=== PATIENT | male | born 1935 | race Caucasian/White ===

== ENCOUNTER → 2016-12-22 | Day surgery (SDC) | payer MEDICARE, BC ==
[~2016-12-22] MED LIST: Acetaminophen/HYDROcodone 325-5 MG Tab PO PRN; Midazolam 1 MG/ML 2 ML SDV IV ONE; Midazolam 1 MG/ML 2 ML SDV ONE; Nicotine 14 MG/24 Hr Patch TRDERM ONE; fentaNYL 100 MCG/2 ML SDV IV ONE; fentaNYL 100 MCG/2 ML SDV ONE
[2016-12-22 13:05] VITALS: BP 192/50
--- NOTE | 2016-12-23 07:44 | OR ---
DATE OF OPERATION: 12/22/2016 PREOPERATIVE DIAGNOSIS: INVASIVE SQUAMOUS CELL CARCINOMA, BIOPSY-PROVEN LESION, LEFT LOWER LIP. POSTOPERATIVE DIAGNOSIS: INVASIVE SQUAMOUS CELL CARCINOMA, BIOPSY-PROVEN LESION, LEFT LOWER LIP. SURGEON: Raghu Perez MD PROCEDURE: WIDE EXCISION WITH VERMILIONECTOMY, LOWER LIP. ANESTHESIA: Local with sedation. DESCRIPTION OF PROCEDURE: Dr. Arias from Dermatology in [place] has biopsied Mr. Dixon's lower lip with evidence of a squamous cell carcinoma, invasive type features. The lesion itself is fairly extensive across the central portion of the lower lip with a central ulceration involving just to the left of midline. The area in question measures approximately 1.8 cm in diameter with crusted scaliness and the biopsy sutures still in place. The remainder of the lip showed some extensive keratotic changes. The patient was taken to the operating suite, an IV sedation with constant monitoring using a fentanyl 50 mcg and Versed 1 mg anesthesia with the lip carefully anesthetized using Xylocaine 2% with epinephrine buffered solution. The mucocutaneous margin anteriorly appeared to be somewhat free of disease and at this point, the incision was made just at the Whisker's line. The posterior extent was into the mucosa with a peripheral margin of 2 mm to 3 mm. A standard vermilionectomy was performed which was brought down to the subcutaneous tissues and the portion of muscularis was also excised with the specimen. The mucosal margins were carefully undermined and the subcutaneous tissues were closed with interrupted 5-0 Vicryl followed by 5-0 Prolene suture for the mucocutaneous junction. The patient will be discharged on NicoDerm patches along with Lortab for discomfort. Ointment will be applied and the standard precautions are noted for this discharge. I will see him in the clinic tomorrow for progress and cleaning of the wound. ANDRES/CLAIRE /[id number]
== END | disposition home or self-care (01) ==
LOC: CC.SDS 10:02
DX: C00.1 Malignant neoplasm of external lower lip (principal); L56.8 Other specified acute skin changes due to ultraviolet radiation; M17.10 Unilateral primary osteoarthritis, unspecified knee; G89.29 Other chronic pain; M25.562 Pain in left knee; J44.1 Chronic obstructive pulmonary disease with (acute) exacerbation; K58.9 Irritable bowel syndrome, unspecified; Z88.8 Allergy status to other drugs, medicaments and biological substances; Z79.899 Other long term (current) drug therapy
CPT/HCPCS: 40500; 88305; A9270; J2250; J3010

== ENCOUNTER 2018-06-06 14:36 | Observation (INO) | payer MEDICARE, BC ==
[2018-06-06 15:06] LABS: CHLORIDE,CL 104 mEq/L (98-106); SODIUM,NA 140 mEq/L (136-145)
[2018-06-06] MEDS ORDERED: Sodium Chloride 0.9% 1,000 ML IV ONE (15:15)
[2018-06-06] MEDS ORDERED: Acetaminophen 325 MG Tab PO PRN (17:53)
[2018-06-06] MEDS ORDERED: Ondansetron 4 MG Tab.DIS PO PRN (17:53)
[2018-06-06] MEDS ORDERED: Meclizine 12.5 MG Tab PO PRN (18:22)
[2018-06-06] MEDS ORDERED: Formoterol/Mometasone 100-5 MCG 8.8 GM Inhaler IH PRN (18:30)
[2018-06-06] MEDS: Enoxaparin 30 MG/0.3 ML Syringe SUBCUT SCH (18:32)
[2018-06-06] MEDS: Pantoprazole 40 MG Vial IVPUSH SCH (18:32)
[2018-06-07] MEDS: Pantoprazole 40 MG Vial IVPUSH SCH ×2 (05:34→17:46)
[2018-06-07] MEDS: Sodium Chloride 0.9% 1,000 ML IV SCH ×3 (05:34→19:28)
[2018-06-07] MEDS ORDERED: Simvastatin 10 MG Tab PO SCH (08:00)
[2018-06-07] MEDS ORDERED: Tamsulosin 0.4 MG Cap.ER PO SCH (08:00)
[2018-06-07] MEDS: Lisinopril 10 MG Tab PO SCH (09:50)
[2018-06-07] MEDS: Enoxaparin 30 MG/0.3 ML Syringe SUBCUT SCH (17:48)
[2018-06-07] MEDS ORDERED: TERAZOSIN 2 MG PO SCH (20:00)
[2018-06-07] MEDS ORDERED: SIMVASTATIN 10 MG PO SCH (20:00)
--- NOTE | 2018-06-07 21:57 | PCM.PN ---
- General Info Date of Service: 06/07/18 Admission Dx/Problem (Free Text): Hypotension Lightheadedness Vomiting Functional Status: Reports: Pain Controlled, Tolerating Diet, Ambulating - Review of Systems General: Reports: Fatigue. Denies: Fever, Weakness HEENT: Reports: No Symptoms Pulmonary: Denies: Shortness of Breath Cardiovascular: Reports: Lightheadedness (has improved today). Denies: Chest Pain, Dyspnea on Exertion, Edema Gastrointestinal: Reports: Abdominal Pain (RUQ pain; states gets pain at times and when bends over, becomes lightheaded.). Denies: Nausea, Vomiting Genitourinary: Reports: No Symptoms Neurological: Denies: Headache, Syncope, Weakness - Patient Data Vitals - Most Recent: Last Vital Signs Temp 97.1 F 06/07/18 19:32 Pulse 53 L 06/07/18 19:32 Resp 20 06/07/18 19:32 BP 143/47 H 06/07/18 19:32 Pulse Ox 97 06/07/18 19:32 Weight - Most Recent: 190 lb 11.2 oz I&O - Last 24 Hours: Intake & Output 06/07/18 06/07/18 06/07/18 06:59 14:59 22:59 Intake Total 750 1989 Output Total 600 Balance 150 1989 Lab Results Last 24 Hours: Laboratory Results - last 24 hr 06/06/18 06/07/18 06/07/18 Range/Units 14:42 07:00 08:00 WBC 8.5 (5.0-10.0) 10^3/uL RBC 4.08 L (4.50-6.00) 10^6/uL Hgb 12.7 L (14.0-18.0) g/dL Hct 37.6 L (40.0-54.0) % MCV 92.2 (82.0-94.0) fL MCH 31.1 (27.0-32.0) pg MCHC 33.8 (33.0-38.0) g/dL RDW Coeff of Tasha 12.8 (11.0-15.0) % Plt Count 229 (150-400) 10^3/uL Neut % (Auto) 62.9 (35-85) % Lymph % (Auto) 25.2 (10-55) % [place] % (Auto) 9.3 (0-16) % Eos % (Auto) 1.9 (0-5) % Baso % (Auto) 0.7 (0-3) % Neut # (Auto) 5.33 (1.80-7.00) 10^3/uL Lymph # (Auto) 2.14 (1.00-4.80) 10^3/uL [place] # (Auto) 0.79 (0.00-0.80) 10^3/uL Eos # (Auto) 0.16 (0.00-0.45) 10^3/uL Baso # (Auto) 0.06 10^3/uL Sodium 141 (136-145) mEq/L Potassium 4.4 (3.5-5.0) mEq/L Chloride 107 H (98-106) mEq/L Carbon Dioxide 28 (21-32) mmol/L BUN 22 H (7-18) mg/dL Creatinine 1.4 H (0.7-1.3) mg/dL Est Cr Clr Drug Dosing 37.38 mL/min Estimated GFR (MDRD) 48 L (>=60) mL/min Glucose 125 H (75-99) mg/dL Calcium 8.6 (8.4-10.1) mg/dL C-Reactive Protein 0.3 (0.2-0.8) mg/dL Urine Color Yellow (YELLOW) Urine Appearance Clear (CLEAR) Urine pH 5.5 (4.5-8.0) Ur Specific Scalf 1.020 (1.003-1.020) Urine Protein Trace H (NEGATIVE) mg/dL Urine Glucose (UA) Negative (NEGATIVE) mg/dL Urine Ketones Negative (NEGATIVE) mg/dL Urine Occult Blood Negative (NEGATIVE) Urine Nitrite Negative (NEGATIVE) Urine Bilirubin Negative (NEGATIVE) Urine Urobilinogen 0.2 (0.2-1.0) EU/dL Ur Leukocyte Esterase Negative (NEGATIVE) Urine RBC 0-5 (0-5) /HPF Urine WBC Not seen (0-5) /HPF Calcium Oxalate Crystal Occasional H (NOT SEEN) /HPF Med Orders - Current: Current Medications Acetaminophen (Tylenol) 650 mg PO Q4H PRN PRN Reason: Pain (Mild 1-3)/fever Enoxaparin Sodium (Lovenox) 30 mg SUBCUT Q24H [facility] Last Admin: 06/07/18 17:48 Dose: 30 mg Sodium Chloride (Normal Saline) 1,000 mls @ 100 mls/hr IV ASDIRECTED [facility] Last Admin: 06/07/18 19:28 Dose: 100 mls/hr Lisinopril (Prinivil) 10 mg PO DAILY [facility] Last Admin: 06/07/18 09:50 Dose: 10 mg Meclizine HCl (Antivert) 25 mg PO TID PRN PRN Reason: DIZZINESS Mometasone Furoate/Formoterol Fumar (Dulera 100-5 Mcg) 2 puff IH BID PRN PRN Reason: Shortness of Breath Ptom Terazosin 2 (Mg Cap) 2 mg PO BEDTIME [facility] Last Admin: 06/07/18 19:30 Dose: 2 mg Ondansetron HCl (Zofran Odt) 4 mg PO Q6H PRN PRN Reason: nausea, able to take PO Pantoprazole Sodium (Protonix Iv) 40 mg IVPUSH Q12H [facility] Last Admin: 06/07/18 17:46 Dose: 40 mg Simvastatin (Zocor) 10 mg PO BEDTIME [facility] Last Admin: 06/07/18 19:31 Dose: 10 mg Discontinued Medications Sodium Chloride (Normal Saline) 1,000 mls @ 250 mls/hr IV ONETIME ONE Stop: 06/06/18 19:14 Last Admin: 06/06/18 15:15 Dose: 250 mls/hr Simvastatin (Zocor) 10 mg PO DAILY [facility] Last Admin: 06/07/18 09:46 Dose: Not Given Tamsulosin HCl (Flomax) 0.4 mg PO DAILY [facility] Last Admin: 06/07/18 09:45 Dose: Not Given - Exam General: Alert, Oriented HEENT: Mucous Membr. Moist/[place] Neck: Supple Lungs: Clear to Auscultation, Normal Respiratory Effort Cardiovascular: Regular Rate, Regular Rhythm GI/Abdominal Exam: Normal Bowel Sounds, Soft, Non-Tender Extremities: Normal Inspection, No Pedal Edema Skin: Warm, Dry Neurological: No New Focal Deficit - Problem List & Annotations (1) Hypotension SNOMED Code(s): 38760817 Code(s): I95.9 - HYPOTENSION, UNSPECIFIED Status: Acute Priority: High Current Visit: Yes (2) Lightheadedness SNOMED Code(s): 814343834 Code(s): R42 - DIZZINESS AND GIDDINESS Status: Acute Priority: High Current Visit: Yes - Problem List Review Problem List Initiated/Reviewed/Updated: Yes - My Orders Last 24 Hours: My Active Orders 06/07/18 09:01 Abdomen Ltd [US] Routine Carotid Comp [US] Routine 06/07/18 09:02 Echo Comp wo Cont [US] Routine 06/07/18 09:15 Lisinopril [Prinivil] 10 mg PO DAILY - Assessment Assessment:: Hypotension Lightheadedness Vomiting - Plan Plan:: Patient admits to feeling better today. States able to get up and ambulate to bathroom without feeling lightheaded. No further nausea or vomiting this. He does report that he has issues at times where he gets RUQ pain, can bend over and then "passes out". Had mild chest pain and upper quadrant pain yesterday but no pain today. He does have a bottle of several different pills in his Lisinopril bottle. States he does only use that when away from home but question if had taken too many meds as were several lisinopril in bottle but mixed with other meds. Lisinopril, Hytrin held since admission and blood pressure 140s/60s this am. Telemetry does show rate that drops to 40s at times today but asymptomatic with it. Labs improved today, Creatinine down to 1.4, electrolytes stable. Will restart Lisinopril at 10 mg today. Continue to hold Hytrin and HCTZ. Obtain RUQ ultrasound, echocardiogram and carotid ultrasound. Discharge inappropriate today due to need for following blood pressure, awaiting results.
[2018-06-08] MEDS: Pantoprazole 40 MG Vial IVPUSH SCH (05:45)
[2018-06-08 07:50] VITALS: BP 148/65
[2018-06-08] MEDS: Lisinopril 10 MG Tab PO SCH (07:59)
--- NOTE | 2018-06-12 19:42 | PCM.DCSUM1 ---
Discharge Summary - Hospital Course Free Text/Narrative:: Patient had presented to clinic due to feeling dizzy, nauseated and weak. Did have emesis in clinic. Was noted to have hypotension in clinic. Per patient, has been taking his meds correctly. Reports has had issues with variable blood pressures, both high and low. Labs done, creatinine 1.9. Admitted to observation, held antihypertensive meds and IV fluids given. Diagnosis: Stroke: No Modified [place] Scale: No Symptoms at All Modified [place] Scale Score: 0 - Discharge Data Discharge Date: 06/08/18 Discharge Disposition: Home, Self-Care 01 Condition: Good - Discharge Diagnosis/Problem(s) (1) Hypotension SNOMED Code(s): 04494301 ICD Code: I95.9 - HYPOTENSION, UNSPECIFIED Status: Acute Priority: High (2) Lightheadedness SNOMED Code(s): 031776915 ICD Code: R42 - DIZZINESS AND GIDDINESS Status: Acute Priority: High - Patient Summary/Data Complications: none Hospital Course: Patient has done well. No further dizziness. Does have history of syncopal episodes per patient that happen at times if he is over exerting himself or gets up too quickly. Did obtain carotid ultrasound and echocardiogram as a result. Also reports upper quadrant abdominal pain, ultrasound done which was negative for concerns. Has had previous cholecystectomy, no concerns with residual stones. Creatinine has improved to 1.4 with IV fluids. Blood pressure on day 1 was stable, started Lisinopril. Continue to hold HCTZ and Hytrin at this time. Patient has scheduled appointment with cardiology from Dr. Cantu, his primary care provider. Will forward results from carotid ultrasound and echo. Patient is up and around and doing well without further symptoms. - Patient Instructions Diet: Usual Diet as Tolerated Activity: As Tolerated - Discharge Plan *PRESCRIPTION DRUG MONITORING PROGRAM REVIEWED*: No *COPY OF PRESCRIPTION DRUG MONITORING REPORT IN PATIENT AIDA: No Prescriptions/Med Rec: Lisinopril [Prinivil] 10 mg PO DAILY #30 tablet Home Medications: Home Meds Budesonide/Formoterol [Symbicort 80-4.5 MCG] 2 puff INH BID PRN 10/26/15 [ History] Simvastatin 10 mg PO DAILY 10/26/15 [History] Cholecalciferol (Vitamin D3) [Vitamin D] 2,000 units PO DAILY 06/06/18 [History] Flaxseed Oil [Flax Oil] 1,000 mg PO DAILY 06/06/18 [History] Meclizine [Antivert] 1 tab PO TID PRN 06/06/18 [History] Tamsulosin [Flomax] 1 tab PO DAILY 06/06/18 [History] Lisinopril [Prinivil] 10 mg PO DAILY #30 tablet 06/08/18 [Rx] Patient Handouts: Hypotension Referrals: Carol Cummings PA [ED Midlevel Provider] - (Follow up with Romina in one week) - Discharge Summary/Plan Comment DC Time >30 min.: No Discharge Summary/Plan Comment: Discharge home Lisinopril 10 mg daily. Did discuss having meds packaged and patient will consider this once blood pressure meds stabilized. Keep scheduled appointment with cardiology in [place] on June 23. - General Info Date of Service: 06/08/18 Admission Dx/Problem (Free Text: Hypotension Lightheadedness Vomiting Functional Status: Reports: Pain Controlled, Tolerating Diet, Ambulating - Review of Systems General: Reports: No Symptoms HEENT: Reports: No Symptoms Pulmonary: Reports: Shortness of Breath. Denies: Cough Cardiovascular: Denies: Chest Pain, Edema, Lightheadedness Gastrointestinal: Denies: Abdominal Pain, Nausea, Vomiting Genitourinary: Reports: No Symptoms Musculoskeletal: Reports: No Symptoms Skin: Reports: No Symptoms Neurological: Reports: No Symptoms - Patient Data Vitals - Most Recent: Last Vital Signs Temp 96.7 F 06/08/18 07:49 Pulse 53 L 06/08/18 07:49 Resp 18 06/08/18 07:49 BP 148/65 H 06/08/18 07:59 Pulse Ox 100 06/08/18 07:49 Weight - Most Recent: 190 lb 11.2 oz Med Orders - Current: Current Medications Discontinued Medications Acetaminophen (Tylenol) 650 mg PO Q4H PRN PRN Reason: Pain (Mild 1-3)/fever Enoxaparin Sodium (Lovenox) 30 mg SUBCUT Q24H [facility] Last Admin: 06/07/18 17:48 Dose: 30 mg Sodium Chloride (Normal Saline) 1,000 mls @ 250 mls/hr IV ONETIME ONE Stop: 06/06/18 19:14 Last Admin: 06/06/18 15:15 Dose: 250 mls/hr Sodium Chloride (Normal Saline) 1,000 mls @ 100 mls/hr IV ASDIRECTED [facility] Last Admin: 06/07/18 19:28 Dose: 100 mls/hr Lisinopril (Prinivil) 10 mg PO DAILY [facility] Last Admin: 06/08/18 07:59 Dose: 10 mg Meclizine HCl (Antivert) 25 mg PO TID PRN PRN Reason: DIZZINESS Mometasone Furoate/Formoterol Fumar (Dulera 100-5 Mcg) 2 puff IH BID PRN PRN Reason: Shortness of Breath Ptom Terazosin 2 (Mg Cap) 2 mg PO BEDTIME [facility] Last Admin: 06/07/18 19:30 Dose: 2 mg Ondansetron HCl (Zofran Odt) 4 mg PO Q6H PRN PRN Reason: nausea, able to take PO Pantoprazole Sodium (Protonix Iv) 40 mg IVPUSH Q12H [facility] Last Admin: 06/08/18 05:45 Dose: 40 mg Simvastatin (Zocor) 10 mg PO DAILY [facility] Last Admin: 06/07/18 09:46 Dose: Not Given Simvastatin (Zocor) 10 mg PO BEDTIME [facility] Last Admin: 06/07/18 19:31 Dose: 10 mg Tamsulosin HCl (Flomax) 0.4 mg PO DAILY [facility] Last Admin: 06/07/18 09:45 Dose: Not Given - Exam General: Reports: Alert, Oriented HEENT: Reports: Mucous Membr. Moist/[place] Neck: Reports: Supple Lungs: Reports: Clear to Auscultation, Normal Respiratory Effort Cardiovascular: Reports: Regular Rate, Regular Rhythm GI/Abdominal Exam: Normal Bowel Sounds, Soft Extremities: Normal Inspection, No Pedal Edema Skin: Reports: Warm, Dry
== END 2018-06-08 10:05 | disposition home or self-care (01) ==
LOC: CC.MS 14:36 → CC.FCMC 14:36 → CC.MS 17:01 → UNDOADMOB 17:01 → CC.MS 17:53
PROVIDERS: ADMIT Family Medicine; ATTEND Family Medicine
DX: I95.2 Hypotension due to drugs (principal); R42 Dizziness and giddiness; J44.9 Chronic obstructive pulmonary disease, unspecified; Z79.899 Other long term (current) drug therapy; Z88.1 Allergy status to other antibiotic agents
CPT/HCPCS: 36415; 76705; 80048; 80053; 81001; 82550; 83615; 84484; 85025; 86140; 93005; 93010; 93306; 93880; 96361; 96372; 96374; 96376; 99217; 99219; 99225; A9270; C9113; G0378; J1650; J7030

== ENCOUNTER 2018-10-29 12:14 | Emergency (ER) | payer MEDICARE, BC ==
--- NOTE | 2018-10-29 14:20 | EDM.PDOC ---
ED HPI GENERAL MEDICAL PROBLEM - General Chief Complaint: General Stated Complaint: right arm pain Time Seen by Provider: 10/29/18 12:30 Source of Information: Reports: Patient History Limitations: Reports: No Limitations - History of Present Illness INITIAL COMMENTS - FREE TEXT/NARRATIVE: Monica is an 83 yo male who presents to the ED with complaints of tingling in his thumb, index and middle finger of his right hand and it radiates up his arm. He states he was pushing his at the home yesterday and this is when symptoms started. Denies any injury. States he hasn't ever had any symptoms like this before. Denies any other symptoms. States he doesn't have any weakness or leg involvement. No headaches. No visual disturbances, etc... - Related Data Allergies Allergy/AdvReac Type Severity Reaction Status Date / Time clarithromycin [From Biaxin] Allergy Nausea Verified 06/06/18 15:05 Home Meds: Home Meds Budesonide/Formoterol [Symbicort 80-4.5 MCG] 2 puff INH BID PRN 10/26/15 [ History] Simvastatin 10 mg PO DAILY 10/26/15 [History] Cholecalciferol (Vitamin D3) [Vitamin D] 2,000 units PO DAILY 06/06/18 [History] Flaxseed Oil [Flax Oil] 1,000 mg PO DAILY 06/06/18 [History] Meclizine [Antivert] 1 tab PO TID PRN 06/06/18 [History] Tamsulosin [Flomax] 1 tab PO DAILY 06/06/18 [History] Lisinopril [Prinivil] 10 mg PO DAILY #30 tablet 06/08/18 [Rx] Past Medical History HEENT History: Reports: Impaired Vision Cardiovascular History: Reports: Hypertension Respiratory History: Reports: COPD Gastrointestinal History: Reports: Chronic Constipation, Colon Polyp - Infectious Disease History Infectious Disease History: Reports: Measles, Pertussis (Whooping Cough) - Past Surgical History Male Surgical History: Reports: Other (See Below) Social & Family History - Family History Family Medical History: Noncontributory ED ROS GENERAL - Review of Systems Review Of Systems: ROS reveals no pertinent complaints other than HPI. Constitutional: Reports: No Symptoms HEENT: Reports: No Symptoms Respiratory: Reports: No Symptoms Cardiovascular: Reports: No Symptoms GI/Abdominal: Reports: No Symptoms : Reports: No Symptoms Musculoskeletal: Reports: Arm Pain, Hand Pain Skin: Reports: No Symptoms Neurological: Reports: Numbness (1-3rd finger right hand), Tingling. Denies: Confusion, Dizziness, Headache, Syncope, Difficulty Walking, Weakness, Change in Speech, Gait Disturbance Psychiatric: Reports: No Symptoms ED EXAM, GENERAL - Physical Exam Exam: See Below Exam Limited By: No Limitations General Appearance: Alert, No Apparent Distress Eye Exam: Bilateral Eye: EOMI, Normal Inspection, PERRL Ears: Normal External Exam, Normal Canal, Hearing Grossly Normal, Normal TMs Nose: Normal Inspection, Normal Mucosa, No Blood Throat/Mouth: Normal Inspection, Normal Lips, Normal Teeth, Normal Gums, Normal Oropharynx, Normal Voice, No Airway Compromise Head: Atraumatic, Normocephalic Neck: Normal Inspection, Supple Respiratory/Chest: No Respiratory Distress, Lungs Clear, Normal Breath Sounds, No Accessory Muscle Use Cardiovascular: Normal Peripheral Pulses, Regular Rate, Rhythm, No Murmur Extremities: Normal Inspection, Normal Range of Motion, Normal Capillary Refill , Other (Positive Tinel sign, hand refueler strength appropriate bilateraly. Full strength in right upper arm. ROM intact. ) Neurological: Alert, Oriented, Normal Cognition, Normal Reflexes, No Motor/ Sensory Deficits Psychiatric: Normal Affect, Normal Mood Skin Exam: Warm, Dry, Intact, Normal Color, No Rash Course - Vital Signs Last Recorded V/S: Last Vital Signs Temp 97.2 F 10/29/18 14:26 Pulse 61 10/29/18 14:26 Resp 18 10/29/18 14:26 BP 168/67 H 10/29/18 14:26 Pulse Ox 97 10/29/18 14:26 Departure - Departure Time of Disposition: 14:22 Disposition: Home, Self-Care 01 Clinical Impression: Carpal tunnel syndrome of right wrist - Discharge Information Instructions: Carpal Tunnel Syndrome, [id number] Forms: ED Department Discharge Additional Instructions: Wear wrist splint continuously unless showering. Important to wear to bed. Recheck with Romina Cummings on Wednesday in clinic. If any other neurological symptoms, memory loss, difficulty with speech, weakness, etc... advise immediately returning to ED. Carpal tunnel handout given - Problem List & Annotations (1) Carpal tunnel syndrome of right wrist SNOMED Code(s): 27579839 Code(s): G56.01 - CARPAL TUNNEL SYNDROME, RIGHT UPPER LIMB Status: Acute - Assessment/Plan Plan: Neuro exam was unremarkable besides positive Tinel sign which immediately caused discomfort in 1-3rd digits and tingling. Wrist splint was applied and monitored Merle for about an hour. He noticed significant improvement and symptoms subsided. Will discharge home at this time in satisfactory condition.
[2018-10-29 14:27] VITALS: BP 168/67
== END 2018-10-29 14:30 | disposition home or self-care (01) ==
LOC: CC.ED 12:14
DX: G56.01 Carpal tunnel syndrome, right upper limb (principal); I10 Essential (primary) hypertension; J44.9 Chronic obstructive pulmonary disease, unspecified; Z79.899 Other long term (current) drug therapy; Z88.1 Allergy status to other antibiotic agents
CPT/HCPCS: 93005; 99283

== ENCOUNTER 2020-05-30 15:00 | Emergency (ER) | payer MEDICARE, BC ==
[2020-05-30 15:26] VITALS: BP 120/56; PULSE 61
[2020-05-30 15:36] LABS: CHLORIDE,CL 99 mEq/L (98-106); SODIUM,NA 137 mEq/L (136-145)
--- NOTE | 2020-05-30 16:13 | EDM.PDOC ---
ED HPI GENERAL MEDICAL PROBLEM - General Chief Complaint: General Stated Complaint: dizziness, weakness Time Seen by Provider: 05/30/20 16:00 Source of Information: Reports: Patient History Limitations: Reports: No Limitations - History of Present Illness INITIAL COMMENTS - FREE TEXT/NARRATIVE: States that he has been feeling weak and tired for 3-4 days. Has had some diarrhea. States that he has had several a day but some are just "squirts". Has not been eating well. Denies any SOB or cough. Has had nausea and when he eats much he "belches it up" He denies vomiting. Denies any abdominal pain. Has been voiding without difficulty. States that he has lack of appetite but not loss of taste or smell at this time. States that he normally doesn't drink water as he doesn't like it. States that he feels very weak and that is what he is most concerned about. He admits that because he lives alone he doesn't like to cook much. "I have been laying around for 3-4 days." Onset: Gradual Location: Reports: Generalized Associated Symptoms: Reports: Loss of Appetite, Nausea/Vomiting, Weakness. Denies: Chest Pain, Fever/Chills, Shortness of Breath - Related Data Allergies Allergy/AdvReac Type Severity Reaction Status Date / Time clarithromycin [From Biaxin] Allergy Nausea Verified 05/30/20 15:30 Home Meds: Home Meds Budesonide/Formoterol [Symbicort 80-4.5 MCG] 2 puff INH BID PRN 10/26/15 [History] Simvastatin 20 mg PO DAILY 10/26/15 [History] Cholecalciferol (Vitamin D3) [Vitamin D] 2,000 units PO DAILY 06/06/18 [History] Flaxseed Oil [Flax Oil] 1,000 mg PO DAILY 06/06/18 [History] Meclizine [Antivert] 1 tab PO TID PRN 06/06/18 [History] Tamsulosin [Flomax] 1 tab PO DAILY 06/06/18 [History] Escitalopram [Lexapro] 20 mg PO DAILY 05/30/20 [History] Lisinopril/Hydrochlorothiazide [Lisinopril-Hctz 20-25 mg Tab] 1 tab PO DAILY 05/30/20 [History] Pantoprazole [ProTONIX] 40 mg PO DAILY 05/30/20 [History] Terazosin [Hytrin] 2 mg PO DAILY 05/30/20 [History] amLODIPine [Norvasc] 5 mg PO DAILY 05/30/20 [History] lisinopriL [Prinivil] 20 mg PO DAILY 05/30/20 [History] Past Medical History HEENT History: Reports: Impaired Vision Cardiovascular History: Reports: Hypertension Respiratory History: Reports: COPD Gastrointestinal History: Reports: Chronic Constipation, Colon Polyp - Infectious Disease History Infectious Disease History: Reports: Measles, Pertussis (Whooping Cough) - Past Surgical History Male Surgical History: Reports: Other (See Below) Musculoskeletal Surgical History: Reports: Other (See Below) Social & Family History - Family History Family Medical History: No Pertinent Family History - Tobacco Use Tobacco Use Status *Q: Former Tobacco User Used Tobacco, but Quit: Yes Month/Year Tobacco Last Used: 2013 - Caffeine Use Caffeine Use: Reports: None - Recreational Drug Use Recreational Drug Use: No - Living Situation & Occupation Living situation: Reports: , Alone Occupation: Retired ED ROS GENERAL - Review of Systems Review Of Systems: See Below Constitutional: Reports: Weakness, Decreased Appetite HEENT: Reports: No Symptoms Respiratory: Denies: Shortness of Breath, Cough Cardiovascular: Reports: No Symptoms GI/Abdominal: Reports: Diarrhea, Nausea. Denies: Abdominal Pain : Reports: No Symptoms Musculoskeletal: Reports: No Symptoms Skin: Reports: No Symptoms Neurological: Reports: Weakness. Denies: Confusion, Headache ED EXAM, GENERAL - Physical Exam Exam: See Below Exam Limited By: No Limitations General Appearance: Alert, WD/WN, Mild Distress Ears: Normal External Exam, Normal Canal, Normal TMs Nose: Normal Inspection Throat/Mouth: Normal Inspection, Normal Oropharynx Head: Atraumatic, Normocephalic Neck: Normal Inspection, Supple, Non-Tender, Full Range of Motion Respiratory/Chest: No Respiratory Distress, Lungs Clear, Normal Breath Sounds Cardiovascular: Regular Rate, Rhythm, No Edema GI/Abdominal: Normal Bowel Sounds, Soft, Non-Tender. No: Guarding, Rigid, Rebound Back Exam: Normal Inspection Extremities: Normal Range of Motion, No Pedal Edema, Normal Capillary Refill Neurological: Alert, Oriented Skin Exam: Warm, Dry, Intact Course - Vital Signs Last Recorded V/S: Last Vital Signs Temp 97.8 F 05/30/20 15:24 Pulse 61 05/30/20 15:24 Resp 20 05/30/20 15:24 BP 120/56 L 05/30/20 15:24 Pulse Ox 95 05/30/20 15:24 - Orders/Labs/Meds Orders: Active Orders 24 hr Category Date Time Status Chest 2V [CR] Stat Exams 05/30/20 14:56 Taken Sodium Chloride 0.9% [Normal Saline] 500 ml Med 05/30/20 16:15 Active IV .BOLUS Medication Orders Sodium Chloride (Normal Saline) 500 mls @ 999 mls/hr IV .BOLUS JAKY Last Admin: 05/30/20 16:30 Dose: 999 mls/hr Documented by: WILBER Labs: Laboratory Tests 05/30/20 05/30/20 05/30/20 Range/Units 15:10 15:10 15:10 WBC 4.6 L (5.0-10.0) 10^3/uL RBC 4.62 (4.50-6.00) 10^6/uL Hgb 14.0 (14.0-18.0) g/dL Hct 42.2 (40.0-54.0) % MCV 91.3 (82.0-94.0) fL MCH 30.3 (27.0-32.0) pg MCHC 33.2 (33.0-38.0) g/dL RDW Coeff of Tasha 13.5 (11.0-15.0) % Plt Count 143 L (150-400) 10^3/uL Neut % (Auto) 57.3 (35-85) % Lymph % (Auto) 24.6 (10-55) % Walker % (Auto) 17.7 H (0-16) % Eos % (Auto) 0.2 (0-5) % Baso % (Auto) 0.2 (0-3) % Neut # (Auto) 2.65 (1.80-7.00) 10^3/uL Lymph # (Auto) 1.14 (1.00-4.80) 10^3/uL Walker # (Auto) 0.82 H (0.00-0.80) 10^3/uL Eos # (Auto) 0.01 (0.00-0.45) 10^3/uL Baso # (Auto) 0.01 10^3/uL PT 10.1 (9.7-12.3) SEC INR 1.00 (0.92-1.18) D-Dimer, Quantitative 1.78 H (0.00-0.50) Sodium 137 (136-145) mEq/L Potassium 3.9 (3.5-5.0) mEq/L Chloride 99 (98-106) mEq/L Carbon Dioxide 27 (21-32) mmol/L BUN 28 H D (7-18) mg/dL Creatinine 2.0 H D (0.7-1.3) mg/dL Est Cr Clr Drug Dosing 25.25 mL/min Estimated GFR (MDRD) 32 L (>=60) mL/min Glucose 116 H (75-99) mg/dL Lactic Acid (0.4-2.0) mmol/L Calcium 8.7 (8.4-10.1) mg/dL Total Bilirubin 0.7 (0.0-1.0) mg/dL AST 33 (15-37) U/L ALT 17 (12-78) U/L Alkaline Phosphatase 82 (46-116) U/L Creatine Kinase 128 (35-232) U/L Troponin I < 0.017 (0.00-0.06) ng/mL NT-Pro-B Natriuret Pep 298 (0-1000) pg/mL Total Protein 8.0 (6.4-8.2) g/dL Albumin 3.2 L (3.4-5.0) g/dL Urine Color (YELLOW) Urine Appearance (CLEAR) Urine pH (4.5-8.0) Ur Specific [place] (1.003-1.020) Urine Protein (NEGATIVE) mg/dL Urine Glucose (UA) (NEGATIVE) mg/dL Urine Ketones (NEGATIVE) mg/dL Urine Occult Blood (NEGATIVE) Urine Nitrite (NEGATIVE) Urine Bilirubin (NEGATIVE) Urine Urobilinogen (0.2-1.0) EU/dL Ur Leukocyte Esterase (NEGATIVE) SARS-CoV-2 RNA (ASA) (NEGATIVE) SARS CoV-2 RNA Rapid ASA (NEGATIVE) 05/30/20 05/30/20 05/30/20 Range/Units 15:10 15:10 16:09 WBC (5.0-10.0) 10^3/uL RBC (4.50-6.00) 10^6/uL Hgb (14.0-18.0) g/dL Hct (40.0-54.0) % MCV (82.0-94.0) fL MCH (27.0-32.0) pg MCHC (33.0-38.0) g/dL RDW Coeff of Tasha (11.0-15.0) % Plt Count (150-400) 10^3/uL Neut % (Auto) (35-85) % Lymph % (Auto) (10-55) % Walker % (Auto) (0-16) % Eos % (Auto) (0-5) % Baso % (Auto) (0-3) % Neut # (Auto) (1.80-7.00) 10^3/uL Lymph # (Auto) (1.00-4.80) 10^3/uL Walker # (Auto) (0.00-0.80) 10^3/uL Eos # (Auto) (0.00-0.45) 10^3/uL Baso # (Auto) 10^3/uL PT (9.7-12.3) SEC INR (0.92-1.18) D-Dimer, Quantitative (0.00-0.50) Sodium (136-145) mEq/L Potassium (3.5-5.0) mEq/L Chloride (98-106) mEq/L Carbon Dioxide (21-32) mmol/L BUN (7-18) mg/dL Creatinine (0.7-1.3) mg/dL Est Cr Clr Drug Dosing mL/min Estimated GFR (MDRD) (>=60) mL/min Glucose (75-99) mg/dL Lactic Acid 1.2 (0.4-2.0) mmol/L Calcium (8.4-10.1) mg/dL Total Bilirubin (0.0-1.0) mg/dL AST (15-37) U/L ALT (12-78) U/L Alkaline Phosphatase (46-116) U/L Creatine Kinase (35-232) U/L Troponin I (0.00-0.06) ng/mL NT-Pro-B Natriuret Pep (0-1000) pg/mL Total Protein (6.4-8.2) g/dL Albumin (3.4-5.0) g/dL Urine Color Dark yellow (YELLOW) Urine Appearance Clear (CLEAR) Urine pH 5.5 (4.5-8.0) Ur Specific [place] >= 1.030 H (1.003-1.020) Urine Protein Negative (NEGATIVE) mg/dL Urine Glucose (UA) Negative (NEGATIVE) mg/dL Urine Ketones Negative (NEGATIVE) mg/dL Urine Occult Blood Negative (NEGATIVE) Urine Nitrite Negative (NEGATIVE) Urine Bilirubin Negative (NEGATIVE) Urine Urobilinogen 0.2 (0.2-1.0) EU/dL Ur Leukocyte Esterase Negative (NEGATIVE) SARS-CoV-2 RNA (ASA) (NEGATIVE) SARS CoV-2 RNA Rapid ASA Negative (NEGATIVE) 05/30/20 05/30/20 Range/Units 16:26 17:10 WBC (5.0-10.0) 10^3/uL RBC (4.50-6.00) 10^6/uL Hgb (14.0-18.0) g/dL Hct (40.0-54.0) % MCV (82.0-94.0) fL MCH (27.0-32.0) pg MCHC (33.0-38.0) g/dL RDW Coeff of Tasha (11.0-15.0) % Plt Count (150-400) 10^3/uL Neut % (Auto) (35-85) % Lymph % (Auto) (10-55) % Walker % (Auto) (0-16) % Eos % (Auto) (0-5) % Baso % (Auto) (0-3) % Neut # (Auto) (1.80-7.00) 10^3/uL Lymph # (Auto) (1.00-4.80) 10^3/uL Walker # (Auto) (0.00-0.80) 10^3/uL Eos # (Auto) (0.00-0.45) 10^3/uL Baso # (Auto) 10^3/uL PT (9.7-12.3) SEC INR (0.92-1.18) D-Dimer, Quantitative (0.00-0.50) Sodium (136-145) mEq/L Potassium (3.5-5.0) mEq/L Chloride (98-106) mEq/L Carbon Dioxide (21-32) mmol/L BUN (7-18) mg/dL Creatinine 1.8 H (0.7-1.3) mg/dL Est Cr Clr Drug Dosing 28.05 mL/min Estimated GFR (MDRD) 36 L (>=60) mL/min Glucose (75-99) mg/dL Lactic Acid (0.4-2.0) mmol/L Calcium (8.4-10.1) mg/dL Total Bilirubin (0.0-1.0) mg/dL AST (15-37) U/L ALT (12-78) U/L Alkaline Phosphatase (46-116) U/L Creatine Kinase (35-232) U/L Troponin I (0.00-0.06) ng/mL NT-Pro-B Natriuret Pep (0-1000) pg/mL Total Protein (6.4-8.2) g/dL Albumin (3.4-5.0) g/dL Urine Color (YELLOW) Urine Appearance (CLEAR) Urine pH (4.5-8.0) Ur Specific [place] (1.003-1.020) Urine Protein (NEGATIVE) mg/dL Urine Glucose (UA) (NEGATIVE) mg/dL Urine Ketones (NEGATIVE) mg/dL Urine Occult Blood (NEGATIVE) Urine Nitrite (NEGATIVE) Urine Bilirubin (NEGATIVE) Urine Urobilinogen (0.2-1.0) EU/dL Ur Leukocyte Esterase (NEGATIVE) SARS-CoV-2 RNA (ASA) Sent to reference la (NEGATIVE) SARS CoV-2 RNA Rapid ASA (NEGATIVE) Meds: Medications Generic Name Dose Route Start Last Admin Trade Name Freq PRN Reason Stop Dose Admin Sodium Chloride 500 mls @ 999 mls/hr 05/30/20 16:15 05/30/20 16:30 Normal Saline IV 999 mls/hr .BOLUS JAKY Administration Discontinued Medications Generic Name Dose Route Start Last Admin Trade Name Freq PRN Reason Stop Dose Admin Dexamethasone 6 mg 05/30/20 16:44 05/30/20 17:36 Dexamethasone PO 05/30/20 16:45 6 mg ONETIME ONE Administration Heparin Sodium (Porcine) Confirm 05/30/20 18:16 Heparin Sodium Administered 05/30/20 18:17 Dose 5,000 units .ROUTE .STK-MED ONE Heparin Sodium/Dextrose Confirm 05/30/20 18:16 Heparin 25,000 Units In D5w 500 Ml Administered 05/30/20 18:17 Dose 500 mls @ as directed .ROUTE .STK-MED ONE Ondansetron HCl 2 packet 05/30/20 17:49 05/30/20 17:54 Take Home: Ondansetron Odt 4 Mg, 2 Tab Pack PO 05/30/20 17:50 2 packet ONETIME ONE Administration - Re-Assessments/Exams Free Text/Narrative Re-Assessment/Exam: 05/30/20 1600 Discussed with pt that his rapid COVID is negative here and that we would be sending sample to the state lab as I feel that with the changes he has on his CXR he most likely has COVID. I told him until we get those results back that we would treat him as positive. He voices understanding of this. 05/30/20 1700 Discussed lab results and CXR with the pt and that because he does not require oxygen that he does not qualify or is it appropriate at this time for admission. He is still able to care for himself even if he is weak. He needs to push fluids as much as possible. Take the dexamethasone daily. use zofran for nausea so that he can keep fluids down. He was told that it didn't matter what he drank as long as he was drinking. He needs to be up and about as much as possible to maintain strength. If he becomes SOB then he needs to be reevaluated at that time and informed him that he could come to the ER or respiratory clinic if needed. Departure - Departure Time of Disposition: 17:46 Disposition: Home, Self-Care 01 Condition: Fair Clinical Impression: COVID-19, Diarrhea due to COVID-19 - Discharge Information *PRESCRIPTION DRUG MONITORING PROGRAM REVIEWED*: Not Applicable *COPY OF PRESCRIPTION DRUG MONITORING REPORT IN PATIENT AIDA: Not Applicable Instructions: COVID-19 Frequently Asked Questions, COVID-19: How to Protect Yourself and Others - CDC Referrals: PCP,Unobtain [Primary Care Provider] - Forms: ED Department Discharge Additional Instructions: push fluids as much as possible- doesn't matter what you drink you need to drink Jo Ann thee may help with the nausea dexamethasone 6 mg daily for the next 10 days. This was sent to the pharmacy and needs to be picked up zofran 4 mg ODT to take every 6 hours as needed for nausea Sepsis Event Note (ED) - Evaluation Sepsis Screening Result: No Definite Risk - Focused Exam Vital Signs: Vital Signs Temp Pulse Resp BP Pulse Ox 05/30/20 15:24 97.8 F 61 20 120/56 L 95 05/30/20 15:01 98.5 F 67 22 H 125/64 97 - Problem List & Annotations (1) COVID-19 SNOMED Code(s): 949445930 Code(s): U07.1 - COVID-19 Status: Acute Priority: High Current Visit: Yes (2) Diarrhea due to COVID-19 SNOMED Code(s): 158449534 Code(s): U07.1 - COVID-19; A08.39 - OTHER VIRAL ENTERITIS Status: Acute Priority: High Current Visit: Yes - Problem List Review Problem List Initiated/Reviewed/Updated: Yes - My Orders Last 24 Hours: My Active Orders 05/30/20 14:56 Chest 2V [CR] Stat 05/30/20 16:15 Sodium Chloride 0.9% [Normal Saline] 500 ml IV .BOLUS - Assessment/Plan Last 24 Hours: My Active Orders 05/30/20 14:56 Chest 2V [CR] Stat 05/30/20 16:15 Sodium Chloride 0.9% [Normal Saline] 500 ml IV .BOLUS
[2020-05-30] MEDS ORDERED: Sodium Chloride 0.9% 500 ML IV SCH (16:15)
[2020-05-30] MEDS ORDERED: Dexamethasone 4 MG Tab PO ONE (16:44)
[2020-05-30] MEDS ORDERED: Ondansetron 4 MG Tab.DIS ONE (17:30)
[2020-05-30] MEDS ORDERED: Take Home: Ondansetron 4 MG Tab.DIS, 2 Tab Pack PO ONE (17:49)
[2020-05-30] MEDS ORDERED: Heparin Sodium 5,000 Units/ML Vial ONE (18:16)
[2020-05-30] MEDS ORDERED: Heparin Sodium/D5W 500 ML ONE (18:16)
== END 2020-05-30 18:20 | disposition home or self-care (01) ==
LOC: CC.ED 15:00
DX: U07.1 COVID-19 (principal); J44.9 Chronic obstructive pulmonary disease, unspecified; I10 Essential (primary) hypertension; Z87.891 Personal history of nicotine dependence; Z79.899 Other long term (current) drug therapy; Z88.1 Allergy status to other antibiotic agents
CPT/HCPCS: 36415; 71046; 80053; 81003; 82550; 82565; 83605; 83880; 84484; 85025; 85379; 85610; 93005; 93010; 99284; 99285-25; A9270-GY; J7040; J8540; U0002

== ENCOUNTER 2020-12-14 13:24 | Emergency (ER) | payer MEDICARE, BC ==
--- NOTE | 2020-12-14 13:59 | EDM.PDOC ---
ED HPI GENERAL MEDICAL PROBLEM - General Chief Complaint: General Stated Complaint: R Arm Skin Tear Time Seen by Provider: 12/14/20 13:54 Source of Information: Reports: Patient History Limitations: Reports: No Limitations - History of Present Illness INITIAL COMMENTS - FREE TEXT/NARRATIVE: This patient is an 85 year old male that presents to the ER. Patient reports that he fell last night. Patient reports it was about 2am in the morning when he went to get water. He reports that he does not recall why he fell. He reports he remembers being able to get up right after he fell. The patient reports that he has been falling a lot since getting his 2nd covid vaccine, which he reports was 2 1/2 months ago. The patient reported to the RN that he has been worked up for his falls, been to [place] and [place] for it. However, the more I talk to the patient about his falls. He reports he was sent to [place] over a year ago. He reports his visit to [place] was to see Felicia, but he reports he does not know what speciality she is. The patient reports to me that he has not had any testing done to find out why he is falling. He reports no testing was done in [place] or [place]. The patient reports that he thinks he is falling due to the room spinning, when he stands. Patient repots that he has had this the last 2 1/2 months. The patient keeps referring to the cause being his 2nd covid vaccine. However, after further chart reviewing, it appears the patient has been seen for Vertigo, same as complaint previously. The patient reports that he currently does not have room spinning sensation. He denies chest pain, shortness of breath, n, v, d, f, cough. The patient denies headache. Reports hitting the back of his head with his fall this morning. The patient is alert and oriented. Onset: Today Onset Date: 12/14/20 Onset Time: 02:00 Duration: Other ("been falling for 2 1/2 months") Location: Reports: Upper Extremity, Right (elbow) Front/Back Body Image: 1 - large skin tear Severity: Moderate Improves with: Reports: None Worsens with: Reports: Movement Associated Symptoms: Denies: Confusion, Chest Pain, Cough, cough w sputum, Diaphoresis, Fever/Chills, Headaches, Loss of Appetite, Malaise, Nausea/Vomiting, Rash, Seizure, Shortness of Breath, Syncope, Weakness r arm Pain Score (Numeric/FACES): 4 - Related Data Allergies Allergy/AdvReac Type Severity Reaction Status Date / Time clarithromycin [From Biaxin] Allergy Nausea Verified 12/14/20 13:29 Home Meds: Home Meds Budesonide/Formoterol [Symbicort 80-4.5 MCG] 2 puff INH BID PRN 10/26/15 [History] Simvastatin 20 mg PO DAILY 10/26/15 [History] Cholecalciferol (Vitamin D3) [Vitamin D] 2,000 units PO DAILY 06/06/18 [History] Flaxseed Oil [Flax Oil] 1,000 mg PO DAILY 06/06/18 [History] Meclizine [Antivert] 1 tab PO TID PRN 06/06/18 [History] Tamsulosin [Flomax] 1 tab PO DAILY 06/06/18 [History] Escitalopram [Lexapro] 20 mg PO DAILY 05/30/20 [History] Lisinopril/Hydrochlorothiazide [Lisinopril-Hctz 20-25 mg Tab] 1 tab PO DAILY 05/30/20 [History] Pantoprazole [ProTONIX] 40 mg PO DAILY 05/30/20 [History] Terazosin [Hytrin] 2 mg PO DAILY 05/30/20 [History] amLODIPine [Norvasc] 5 mg PO DAILY 05/30/20 [History] lisinopriL [Prinivil] 20 mg PO DAILY 05/30/20 [History] Past Medical History HEENT History: Reports: Impaired Vision Cardiovascular History: Reports: Hypertension Respiratory History: Reports: COPD Gastrointestinal History: Reports: Chronic Constipation, Colon Polyp - Infectious Disease History Infectious Disease History: Reports: Measles, Pertussis (Whooping Cough) - Past Surgical History GI Surgical History: Reports: Appendectomy, Cholecystectomy Male Surgical History: Reports: Other (See Below) Other Male Surgeries/Procedures: bladder tumor removed - benign Musculoskeletal Surgical History: Reports: Other (See Below) Other Musculoskeletal Surgeries/Procedures:: knee surgery x 2 Social & Family History - Family History Family Medical History: No Pertinent Family History - Tobacco Use Tobacco Use Status *Q: Never Tobacco User Second Hand Smoke Exposure: No - Caffeine Use Caffeine Use: Reports: None - Recreational Drug Use Recreational Drug Use: No - Living Situation & Occupation Living situation: Reports: , Alone Occupation: Retired ED ROS GENERAL - Review of Systems Review Of Systems: See Below Constitutional: Reports: No Symptoms HEENT: Reports: Vertigo Respiratory: Reports: No Symptoms Cardiovascular: Reports: Lightheadedness. Denies: Chest Pain, Dyspnea on Exert ion, Edema, Palpitations, Syncope Endocrine: Reports: No Symptoms GI/Abdominal: Reports: No Symptoms : Reports: No Symptoms Musculoskeletal: Reports: Joint Pain (mild right elbow) Skin: Reports: Wound (large wound right elbow) Neurological: Reports: Dizziness, Other (Recurrent Falls) Psychiatric: Reports: No Symptoms Hematologic/Lymphatic: Reports: No Symptoms ED EXAM, GENERAL - Physical Exam Exam: See Below Exam Limited By: No Limitations General Appearance: Alert, WD/WN, No Apparent Distress Eye Exam: Bilateral Eye: EOMI, Normal Inspection, PERRL Ears: Normal External Exam, Normal Canal, Hearing Grossly Normal, Normal TMs Ear Exam: Bilateral Ear: Auricle Normal, Canal Normal, TM normal Nose: Normal Inspection, Normal Mucosa, No Blood Throat/Mouth: Normal Inspection, Normal Lips, Normal Teeth, Normal Gums, Normal Oropharynx, Normal Voice, No Airway Compromise Head: Atraumatic, Normocephalic Neck: Normal Inspection, Supple, Non-Tender, Full Range of Motion Respiratory/Chest: No Respiratory Distress, Lungs Clear, Normal Breath Sounds, No Accessory Muscle Use, Chest Non-Tender Cardiovascular: Normal Peripheral Pulses, Regular Rate, Rhythm, No Edema, No Gallop, No JVD, No Murmur, No Rub Peripheral Pulses: 2+: Carotid (L), Carotid (R), Radial (L), Radial (R), Posterior Tibial (L), Posterior Tibial (R), Dorsalis Pedis (L), Dorsalis Pedis (R) GI/Abdominal: Soft, Non-Tender (Male) Exam: Deferred Rectal (Males) Exam: Deferred Back Exam: Normal Inspection, Full Range of Motion. No: CVA Tenderness (L), CVA Tenderness (R), Decreased Range of Motion, Muscle Spasm, Paraspinal Tenderness, Vertebral Tenderness Extremities: Normal Range of Motion, No Pedal Edema, Normal Capillary Refill, Ot her (mild tenderness righ elbow) Neurological: Alert, Oriented, CN II-XII Intact, Normal Cognition, Normal Gait, No Motor/Sensory Deficits, Other (mild tremors bilateral hands with focal movement) Psychiatric: Normal Affect, Normal Mood Skin Exam: Warm, Dry, Normal Color, No Rash, Wound/Incision (large skin avulsion right elbow) Lymphatic: No Adenopathy #1 Interpretation EKG Date: 12/14/20 Time: 14:31 Rhythm: Other (Sinus [place]) Rate (Beats/Min): 59 [place]: Normal P-Wave: Present QRS: Normal ST-T: Normal QT: Normal Course - Vital Signs Last Recorded V/S: Last Vital Signs Temp 97.6 F 12/14/20 13:30 Pulse 63 12/14/20 13:30 Resp 16 12/14/20 13:30 BP 137/66 12/14/20 13:30 Pulse Ox 97 12/14/20 13:30 - Orders/Labs/Meds Orders: Active Orders 24 hr Category Date Time Status Vaccines to be Administered [RC] PER UNIT ROUTINE Care 12/14/20 14:14 Active Chest 2V [CR] Stat Exams 12/14/20 13:55 Taken Elbow Min 3V Rt [CR] Stat Exams 12/14/20 13:55 Taken Head wo Cont [CT] Stat Exams 12/14/20 13:55 Taken UA RFX HILDA AND CULT IF INDIC [URIN] Stat Lab 12/14/20 13:57 Ordered Labs: Laboratory Tests 12/14/20 12/14/20 12/14/20 Range/Units 14:10 14:10 14:10 WBC 8.5 (5.0-10.0) 10^3/uL RBC 4.37 L (4.50-6.00) 10^6/uL Hgb 13.7 L (14.0-18.0) g/dL Hct 40.0 (40.0-54.0) % MCV 91.5 (82.0-94.0) fL MCH 31.4 (27.0-32.0) pg MCHC 34.3 (33.0-38.0) g/dL RDW Coeff of Tasha 13.1 (11.0-15.0) % Plt Count 230 (150-400) 10^3/uL Neut % (Auto) 71.1 (35-85) % Lymph % (Auto) 16.9 (10-55) % [place] % (Auto) 9.7 (0-16) % Eos % (Auto) 1.9 (0-5) % Baso % (Auto) 0.4 (0-3) % Neut # (Auto) 6.03 (1.80-7.00) 10^3/uL Lymph # (Auto) 1.43 (1.00-4.80) 10^3/uL [place] # (Auto) 0.82 H (0.00-0.80) 10^3/uL Eos # (Auto) 0.16 (0.00-0.45) 10^3/uL Baso # (Auto) 0.03 10^3/uL PT 10.4 (9.7-12.3) SEC INR 0.95 (0.92-1.18) Sodium 138 (136-145) mEq/L Potassium 3.7 D (3.5-5.0) mEq/L Chloride 101 (98-106) mEq/L Carbon Dioxide 26 (21-32) mmol/L BUN 27 H (7-18) mg/dL Creatinine 2.0 H (0.7-1.3) mg/dL Est Cr Clr Drug Dosing 24.79 mL/min Estimated GFR (MDRD) 32 L (>=60) mL/min Glucose 211 H D (75-99) mg/dL Lactic Acid (0.4-2.0) mmol/L Calcium 8.8 (8.4-10.1) mg/dL Total Bilirubin 0.6 (0.0-1.0) mg/dL AST 12 L (15-37) U/L ALT 14 (12-78) U/L Alkaline Phosphatase 98 (46-116) U/L Lactate Dehydrogenase 141 (100-190) U/L Creatine Kinase 33 L (35-232) U/L Troponin I < 0.017 (0.00-0.06) ng/mL Total Protein 6.9 (6.4-8.2) g/dL Albumin 3.1 L (3.4-5.0) g/dL 12/14/20 Range/Units 14:10 WBC (5.0-10.0) 10^3/uL RBC (4.50-6.00) 10^6/uL Hgb (14.0-18.0) g/dL Hct (40.0-54.0) % MCV (82.0-94.0) fL MCH (27.0-32.0) pg MCHC (33.0-38.0) g/dL RDW Coeff of Tasha (11.0-15.0) % Plt Count (150-400) 10^3/uL Neut % (Auto) (35-85) % Lymph % (Auto) (10-55) % [place] % (Auto) (0-16) % Eos % (Auto) (0-5) % Baso % (Auto) (0-3) % Neut # (Auto) (1.80-7.00) 10^3/uL Lymph # (Auto) (1.00-4.80) 10^3/uL [place] # (Auto) (0.00-0.80) 10^3/uL Eos # (Auto) (0.00-0.45) 10^3/uL Baso # (Auto) 10^3/uL PT (9.7-12.3) SEC INR (0.92-1.18) Sodium (136-145) mEq/L Potassium (3.5-5.0) mEq/L Chloride (98-106) mEq/L Carbon Dioxide (21-32) mmol/L BUN (7-18) mg/dL Creatinine (0.7-1.3) mg/dL Est Cr Clr Drug Dosing mL/min Estimated GFR (MDRD) (>=60) mL/min Glucose (75-99) mg/dL Lactic Acid 2.4 H (0.4-2.0) mmol/L Calcium (8.4-10.1) mg/dL Total Bilirubin (0.0-1.0) mg/dL AST (15-37) U/L ALT (12-78) U/L Alkaline Phosphatase (46-116) U/L Lactate Dehydrogenase (100-190) U/L Creatine Kinase (35-232) U/L Troponin I (0.00-0.06) ng/mL Total Protein (6.4-8.2) g/dL Albumin (3.4-5.0) g/dL Meds: Medications Discontinued Medications Generic Name Dose Route Start Last Admin Trade Name Anastasia PRN Reason Stop Dose Admin Diphtheria/Tetanus/Acell Pertussis 0.5 ml 12/14/20 14:14 12/14/20 14:55 Diphtheria,Pertussis(Acell),Tetanus Vaccine 0.5 Ml Syringe IM 12/14/20 14:15 0.5 ml .ONCE ONE Administration - Radiology Interpretation Free Text/Narrative:: CXR: mild to moderate stable cardiomegaly. There is diffuse increased interstitual markings probably combination of interstitual edema or superimposed interstitual fibrotic lung changes. Overall pattern is similar to previous studies no obvious acute infiltrate or effusion. CT head: no acute findings Right elbow xray: no acute fracture CT Results Date: 12/14/20 CT Results Time: 16:20 - Re-Assessments/Exams Free Text/Narrative Re-Assessment/Exam: 12/14/20 16:19 Labs, CR is his baseline. Otherwise, unremarkable. CTs are unremarkable. Patient to f/u with PCP. Departure - Departure Time of Disposition: 16:22 Disposition: Home, Self-Care 01 Condition: Good Clinical Impression: Vertigo, Abrasion Fall Qualifiers: Encounter type: initial encounter Qualified Code(s): W19.XXXA - Unspecified fall, initial encounter - Discharge Information *PRESCRIPTION DRUG MONITORING PROGRAM REVIEWED*: Not Applicable *COPY OF PRESCRIPTION DRUG MONITORING REPORT IN PATIENT AIDA: Not Applicable Instructions: Vertigo, [id number], Abrasion, [id number] Forms: ED Department Discharge Additional Instructions: Followup with your primary care provider within the next week Return to the ER for worsening of condition or any emergent concerns Wash your wound twice a day with soap and water, apply neosporin: Keep clean Tylenol for pain Ice to painful areas Sepsis Event Note (ED) - Evaluation Sepsis Screening Result: No Definite Risk - Focused Exam Vital Signs: Vital Signs Temp Pulse Resp BP Pulse Ox 12/14/20 13:30 97.6 F 63 16 137/66 97 - My Orders Last 24 Hours: My Active Orders 12/14/20 13:55 Chest 2V [CR] Stat Elbow Min 3V Rt [CR] Stat Head wo Cont [CT] Stat 12/14/20 13:57 UA RFX HILDA AND CULT IF INDIC [URIN] Stat 12/14/20 14:14 Vaccines to be Administered [RC] PER UNIT ROUTINE - Assessment/Plan Last 24 Hours: My Active Orders 12/14/20 13:55 Chest 2V [CR] Stat Elbow Min 3V Rt [CR] Stat Head wo Cont [CT] Stat 12/14/20 13:57 UA RFX HILDA AND CULT IF INDIC [URIN] Stat 12/14/20 14:14 Vaccines to be Administered [RC] PER UNIT ROUTINE Plan: PLEASE SEE RN NOTE FOR PFSH
[2020-12-14] MEDS ORDERED: Diphtheria,Pertussis(Acell),Tetanus Vaccine 0.5 ML Syringe IM ONE (14:14)
[2020-12-14 14:30] LABS: CHLORIDE,CL 101 mEq/L (98-106); SODIUM,NA 138 mEq/L (136-145)
[2020-12-14] MEDS ORDERED: Bacitracin/Neomycin/Polymyxin B Oint 0.9 GM U/D Packet TOP ONE (16:32)
[2020-12-14 16:46] VITALS: BP 134/74; PULSE 76
== END 2020-12-14 16:46 | disposition home or self-care (01) ==
LOC: CC.ED 13:24
DX: S51.001A Unspecified open wound of right elbow, initial encounter (principal); I10 Essential (primary) hypertension; J44.9 Chronic obstructive pulmonary disease, unspecified; Z88.1 Allergy status to other antibiotic agents; Z79.899 Other long term (current) drug therapy; Z23 Encounter for immunization; W19.XXXA Unspecified fall, initial encounter
CPT/HCPCS: 36415; 70450; 71046; 73080-RT; 80053; 82550; 83605; 83615; 84484; 85025; 85610; 90471; 90715; 93005; 93010; 99284; 99284-25

== ENCOUNTER 2021-06-22 05:56 | Emergency (ER) | payer MEDICARE, BC ==
--- NOTE | 2021-06-22 06:24 | EDM.PDOC ---
ED HPI GENERAL MEDICAL PROBLEM - General Chief Complaint: General Stated Complaint: constipation Time Seen by Provider: 06/22/21 06:15 Source of Information: Reports: Patient History Limitations: Reports: No Limitations - History of Present Illness INITIAL COMMENTS - FREE TEXT/NARRATIVE: Patent came in by EMS tonight for constipation, and rectal pressure. Patient lives alone and has not had a bowel movement for several days. at about 1 am he tried to have a bowel movement but has unable to fully pass it. Stool has become stuck 1/2 out of the rectal. Pain is significant and he attempted to call multiple family members but they did not answer. Called EMS for help. they elected to transport him to the ED. He was ambulatory and nursing found him with rectal impaction and stool partially sticking out of the rectum. Nursing kindly manually helped him to remove this and then he went to the bathroom and started to pass stool. Denies any abdominal pain, fever, or recent illness, no fevers or vomiting Onset: Today Onset Time: 01:00 Rectal Pain Score (Numeric/FACES): 10 - Related Data Allergies Allergy/AdvReac Type Severity Reaction Status Date / Time clarithromycin [From Biaxin] Allergy Nausea Verified 06/22/21 06:05 Home Meds: Home Meds Budesonide/Formoterol [Symbicort 80-4.5 MCG] 2 puff INH BID PRN 10/26/15 [History] Simvastatin 20 mg PO DAILY 10/26/15 [History] Cholecalciferol (Vitamin D3) [Vitamin D] 2,000 units PO DAILY 06/06/18 [History] Flaxseed Oil [Flax Oil] 1,000 mg PO DAILY 06/06/18 [History] Meclizine [Antivert] 1 tab PO TID PRN 06/06/18 [History] Tamsulosin [Flomax] 1 tab PO DAILY 06/06/18 [History] Escitalopram [Lexapro] 20 mg PO DAILY 05/30/20 [History] Lisinopril/Hydrochlorothiazide [Lisinopril-Hctz 20-25 mg Tab] 1 tab PO DAILY 05/30/20 [History] Pantoprazole [ProTONIX] 40 mg PO DAILY 05/30/20 [History] Terazosin [Hytrin] 2 mg PO DAILY 05/30/20 [History] amLODIPine [Norvasc] 5 mg PO DAILY 05/30/20 [History] lisinopriL [Prinivil] 20 mg PO DAILY 05/30/20 [History] Past Medical History HEENT History: Reports: Impaired Vision Cardiovascular History: Reports: Hypertension Respiratory History: Reports: COPD Gastrointestinal History: Reports: Chronic Constipation, Colon Polyp - Infectious Disease History Infectious Disease History: Reports: Measles, Pertussis (Whooping Cough) - Past Surgical History GI Surgical History: Reports: Appendectomy, Cholecystectomy Male Surgical History: Reports: Other (See Below) Other Male Surgeries/Procedures: bladder tumor removed - benign Musculoskeletal Surgical History: Reports: Other (See Below) Other Musculoskeletal Surgeries/Procedures:: knee surgery x 2 Social & Family History - Family History Family Medical History: No Pertinent Family History - Caffeine Use Caffeine Use: Reports: None - Recreational Drug Use Recreational Drug Use: No Drug Use in Last 12 Months: No - Living Situation & Occupation Living situation: Reports: , Alone Occupation: Retired ED ROS GENERAL - Review of Systems Review Of Systems: See Below Constitutional: Reports: No Symptoms HEENT: Reports: No Symptoms Respiratory: Reports: No Symptoms Cardiovascular: Reports: No Symptoms Endocrine: Reports: No Symptoms GI/Abdominal: Reports: Constipation, Other (rectal pressure) : Reports: No Symptoms Musculoskeletal: Reports: No Symptoms Skin: Reports: No Symptoms Neurological: Reports: No Symptoms Psychiatric: Reports: No Symptoms Hematologic/Lymphatic: Reports: No Symptoms ED EXAM, GENERAL - Physical Exam Exam: See Below Course - Vital Signs Last Recorded V/S: Last Vital Signs Temp 37.1 C 06/22/21 08:00 Pulse 77 06/22/21 08:00 Resp 18 06/22/21 08:00 BP 142/65 H 06/22/21 08:00 Pulse Ox 95 06/22/21 08:00 - Orders/Labs/Meds Orders: Active Orders 24 hr Category Date Time Status Enema [RC] ASDIRECTED Care 06/22/21 06:27 Active Peripheral IV Care [RC] . DIRECTED Care 06/22/21 07:29 Active Abdomen Pelvis wo Cont [CT] Stat Exams 06/22/21 08:30 Ordered Abdomen Pelvis wo Cont [CT] Stat Exams 06/22/21 08:30 Taken CEA [REF] Stat Lab 06/22/21 07:28 Ordered Sodium Chloride 0.9% [Saline Flush] Med 06/22/21 07:28 Active 10 ml FLUSH ASDIRECTED PRN Peripheral IV Insertion Adult [OM.PC] Routine Oth 06/22/21 07:28 Ordered Medication Orders Sodium Chloride (Sodium Chloride 0.9% 10 Ml Syringe) 10 ml FLUSH ASDIRECTED PRN PRN Reason: Keep Vein Open Labs: Laboratory Tests 06/22/21 06/22/21 06/22/21 Range/Units 07:28 07:28 07:28 WBC 19.8 H (4.0-11.0) 10^3/uL RBC 4.75 (4.50-6.00) x10^6/uL Hgb 14.5 (14.0-18.0) g/dL Hct 42.7 (42.0-52.0) % MCV 89.9 (83.0-97.0) fL MCH 30.5 (27.0-32.0) pg MCHC 34.0 (32.0-36.0) g/dL RDW Coeff of Tasha 13.0 (11.0-15.0) % Plt Count 263 (150-400) 10^3/uL Immature Gran % (Auto) 0.2 (0.0-4.9) % Neut % (Auto) 89.4 H (41-71) % Lymph % (Auto) 3.8 L (24-44) % [place] % (Auto) 6.3 (0-10) % Eos % (Auto) 0.1 (0-6) % Baso % (Auto) 0.2 (0-1) % Neut # (Auto) 17.74 H (1.80-8.00) x10^3/uL Lymph # (Auto) 0.75 (0.60-5.00) 10^3/uL [place] # (Auto) 1.25 (0.00-1.50) 10^3/uL Eos # (Auto) 0.02 (0.00-1.50) 10^3/uL Baso # (Auto) 0.03 (0.00-0.50) 10^3/uL Immature Gran # (Auto) 0.04 (0.00-0.49) 10^3/uL Sodium 140 (136-145) mEq/L Potassium 4.3 (3.5-5.0) mEq/L Chloride 103 (98-106) mEq/L Carbon Dioxide 27 (21-32) mmol/L BUN 19 H (7-18) mg/dL Creatinine 1.7 H (0.7-1.3) mg/dL Est Cr Clr Drug Dosing TNP Estimated GFR (MDRD) 38 L (>=60) mL/min Glucose 132 H D (75-99) mg/dL Calcium 9.0 (8.4-10.1) mg/dL Total Bilirubin 0.6 (0.0-1.0) mg/dL AST 15 (15-37) U/L ALT 15 (12-78) U/L Alkaline Phosphatase 99 (46-116) U/L C-Reactive Protein 0.7 (0.2-0.8) mg/dL Total Protein 7.2 (6.4-8.2) g/dL Albumin 3.4 (3.4-5.0) g/dL Urine Color Dark yellow (YELLOW) Urine Appearance Clear (CLEAR) Urine pH 5.5 (4.5-8.0) Ur Specific [place] 1.025 H (1.003-1.020) Urine Protein Negative (NEGATIVE) mg/dL Urine Glucose (UA) Negative (NEGATIVE) mg/dL Urine Ketones Negative (NEGATIVE) mg/dL Urine Occult Blood Negative (NEGATIVE) Urine Nitrite Negative (NEGATIVE) Urine Bilirubin Negative (NEGATIVE) Urine Urobilinogen 1.0 (0.2-1.0) EU/dL Ur Leukocyte Esterase Trace H (NEGATIVE) Urine RBC Not seen (0-5) /HPF Urine WBC Not seen (0-5) /HPF Urinalysis Comment Meds: Medications Generic Name Dose Route Start Last Admin Trade Name Freq PRN Reason Stop Dose Admin Sodium Chloride 10 ml 06/22/21 07:28 Sodium Chloride 0.9% 10 Ml Syringe FLUSH ASDIRECTED PRN Keep Vein Open Discontinued Medications Generic Name Dose Route Start Last Admin Trade Name Freq PRN Reason Stop Dose Admin Sodium Chloride 1,000 mls @ 1,000 mls/hr 06/22/21 07:30 06/22/21 07:49 Normal Saline IV 1,000 mls/hr ASDIRECTED JAKY Administration Sodium Chloride 1,000 mls @ 1,000 mls/hr 06/22/21 08:30 06/22/21 08:59 Normal Saline IV 06/22/21 09:29 1,000 mls/hr ONETIME ONE Administration Magnesium Citrate 18 ml 06/22/21 06:27 06/22/21 06:37 Magnesium Citrate Solution 296 Ml Bottle PO 06/22/21 06:28 296 ml ONETIME ONE Administration - Radiology Interpretation Free Text/Narrative:: ct of the abdomen and pelvis with oral contrast only reveal no abdominal process that is concerning. atelectasis in the lung bases ( no lung symptoms)discussed with radiologist - Re-Assessments/Exams Free Text/Narrative Re-Assessment/Exam: 06/22/21 06:23 patient was in the bathroom at my arrival tot he ED. Offered enema, was able to have some bowel movement prior to this. 06/22/21 06:29 given a fleets enema and a bottle of magnesium citrate. 06/22/21 06:35 Patient is holding the enema well. States his last colonoscopy was at age 77 he thinks and stools have been more thin in nature overt the last year with stools never being bigger than the size of his thumb. No bloody stools. States his mom had colons cancer at the age of 60 and needed ostomy for awhile. He was told that after his last colonscopy that he did not need any further colonoscopy. Will allow him to drink the magnesium citrate and the fleets work. Will need outpatient work up with ct scan with iv and oral contrast to rule out stricture and possible colonoscopy 06/22/21 07:30 unable to have a bowel movement, no urge, concern for obstructive type of lesion, will get labs, ct with iv contrast and give fluids 06/22/21 08:28 taking in the oral contrast well. creatinine too high for IV contrast. will do with oral contast. leukocytosis noted, normal crp. question pain repsonse or more ominous process. second liter of fluid started 06/22/21 09:57 was able to have a bowel movement, second liter infusing, still no urine . Ct is here. 06/22/21 11:50 ct negative for concerning lesion. leukocytosis could be due to pain from the impaction over several hours. advised close follow up . patient is feeling better 06/22/21 11:51 Departure - Departure Time of Disposition: 11:47 Disposition: Home, Self-Care 01 Clinical Impression: Constipation, Fecal impaction in rectum, Leucocytosis - Discharge Information *PRESCRIPTION DRUG MONITORING PROGRAM REVIEWED*: Not Applicable *COPY OF PRESCRIPTION DRUG MONITORING REPORT IN PATIENT AIDA: Not Applicable Instructions: Constipation, Adult, Qxyv-[id number], Fecal Impaction Referrals: PCP,None [Primary Care Provider] - Forms: ED Department Discharge Additional Instructions: you were give a fleets enema and magnesium citrate in the ED. This was able to give you a bowel movement eventually and Ct scan did not reveal any acute intraabdominal process. Your white blood cell count was elevated but we can see this with prolonged pain response. This should be rechecked in the next week to ensure returning to normal. Take a stool softener daily or a capful of miralax daily. Adding prune juice to your diet would help also. Follow up with PCP Sepsis Event Note (ED) - Focused Exam Vital Signs: Vital Signs Temp Pulse Resp BP Pulse Ox 06/22/21 08:00 37.1 C 77 18 142/65 H 95 06/22/21 06:05 36.6 C 85 22 H 166/86 H 98 - My Orders Last 24 Hours: My Active Orders 06/22/21 06:27 Enema [RC] ASDIRECTED 06/22/21 07:28 CEA [REF] Stat Sodium Chloride 0.9% [Saline Flush] 10 ml FLUSH ASDIRECTED PRN Peripheral IV Insertion Adult [OM.PC] Routine 06/22/21 07:29 Peripheral IV Care [RC] . DIRECTED 06/22/21 08:30 Abdomen Pelvis wo Cont [CT] Stat Abdomen Pelvis wo Cont [CT] Stat - Assessment/Plan Last 24 Hours: My Active Orders 06/22/21 06:27 Enema [RC] ASDIRECTED 06/22/21 07:28 CEA [REF] Stat Sodium Chloride 0.9% [Saline Flush] 10 ml FLUSH ASDIRECTED PRN Peripheral IV Insertion Adult [OM.PC] Routine 06/22/21 07:29 Peripheral IV Care [RC] . DIRECTED 06/22/21 08:30 Abdomen Pelvis wo Cont [CT] Stat Abdomen Pelvis wo Cont [CT] Stat
[2021-06-22] MEDS ORDERED: Magnesium Citrate Solution 296 ML Bottle PO ONE (06:27)
[2021-06-22] MEDS ORDERED: Sodium Chloride 0.9% 10 ML Syringe FLUSH PRN (07:28)
[2021-06-22] MEDS ORDERED: Sodium Chloride 0.9% 1,000 ML IV SCH (07:30)
[2021-06-22 08:06] LABS: CHLORIDE,CL 103 mEq/L (98-106); SODIUM,NA 140 mEq/L (136-145)
[2021-06-22 08:21] VITALS: BP 142/65; PULSE 77
[2021-06-22] MEDS ORDERED: Sodium Chloride 0.9% 1,000 ML IV ONE (08:30)
== END 2021-06-22 13:00 | disposition home or self-care (01) ==
LOC: CC.ED 05:56
DX: K56.41 Fecal impaction (principal); D72.829 Elevated white blood cell count, unspecified; I10 Essential (primary) hypertension; Z88.1 Allergy status to other antibiotic agents; Z79.899 Other long term (current) drug therapy
CPT/HCPCS: 36415; 74176; 80053; 81001; 81003; 82378; 85025; 86140; 99284-25; A9270-GY; J7030

== ENCOUNTER 2021-12-25 20:38 | Inpatient (IN) | payer MEDICARE, BC ==
[2021-12-25] MEDS ORDERED: Sodium Chloride 0.9% 500 ML ONE (20:39)
[2021-12-25 21:06] LABS: CHLORIDE,CL 100 mEq/L (98-106); SODIUM,NA 137 mEq/L (136-145)
[2021-12-25 21:07] LABS: ESTIMATED GFR 44 mL/min (>=60)
[2021-12-25] MEDS ORDERED: Sodium Chloride 0.9% 500 ML IV SCH (21:15)
[2021-12-25] MEDS ORDERED: Ondansetron 4 MG Tab.DIS PO PRN (22:10)
[2021-12-25] MEDS ORDERED: Potassium Chloride 10 MEQ Tab.ER PO ONE (22:10)
[2021-12-25] MEDS ORDERED: REMDESIVIR 200 MG in Sodium Chloride 0.9% 250 ML IV ONE (22:10)
[2021-12-25] MEDS ORDERED: Ondansetron 4 MG/2 ML SDV IV PRN (22:10)
[2021-12-25] MEDS ORDERED: [UNRECOGNIZED DRUG - OTHER] INH PRN (22:16)
[2021-12-25] MEDS ORDERED: BUDESONIDE INH PRN (22:16)
[2021-12-25] MEDS ORDERED: FORMOTEROL INH PRN (22:16)
[2021-12-25] MEDS ORDERED: INHAL INH PRN (22:16)
[2021-12-25] MEDS ORDERED: Formoterol/Mometasone 100-5 MCG 8.8 GM Inhaler IH PRN (22:32)
[2021-12-25] MEDS: Sodium Chloride 0.9% 1,000 ML IV SCH (23:01)
[2021-12-26] MEDS ORDERED: Non-Formulary Medication 1 Each (Escitalopram [Lexapro] 20 MG Tablet) PO SCH (08:00)
[2021-12-26] MEDS: Terazosin 1 MG Cap PO SCH (08:04)
[2021-12-26] MEDS: Lisinopril 10 MG Tab PO SCH (08:04)
[2021-12-26] MEDS: Pantoprazole 40 MG Tab.CR PO SCH (08:04)
[2021-12-26] MEDS: amLODIPine 2.5 MG Tab PO SCH (08:04)
[2021-12-26] MEDS: Tamsulosin 0.4 MG Cap.ER PO SCH (08:05)
[2021-12-26] MEDS: Potassium Chloride 10 MEQ Tab.ER PO SCH (08:05)
[2021-12-26] MEDS: Citalopram 10 MG Tab PO SCH (08:05)
[2021-12-26] MEDS: Cholecalciferol (Vitamin D3) 25 MCG Tab PO SCH (08:05)
[2021-12-26] MEDS: Acetaminophen 325 MG Tab PO PRN ×2 (08:06→19:46)
[2021-12-26] MEDS: Sodium Chloride 0.9% 1,000 ML IV SCH ×2 (09:43→19:47)
[2021-12-26] MEDS: Enoxaparin 40 MG/0.4 ML Syringe SUBCUT SCH (19:21)
[2021-12-26] MEDS: Simvastatin 10 MG Tab PO SCH (19:21)
[2021-12-26] MEDS: REMDESIVIR 100 MG in Sodium Chloride 0.9% 100 ML IV SCH (19:22)
[2021-12-26] MEDS ORDERED: REMDESIVIR 100 MG in Sodium Chloride 0.9% 100 ML IV SCH (22:00)
[2021-12-27] MEDS: Pantoprazole 40 MG Tab.CR PO SCH (06:55)
[2021-12-27] MEDS: Tamsulosin 0.4 MG Cap.ER PO SCH (08:06)
[2021-12-27] MEDS: Lisinopril 10 MG Tab PO SCH (08:06)
[2021-12-27] MEDS: Citalopram 10 MG Tab PO SCH (08:07)
[2021-12-27] MEDS: Potassium Chloride 10 MEQ Tab.ER PO SCH (08:07)
[2021-12-27] MEDS: Terazosin 1 MG Cap PO SCH (08:08)
[2021-12-27] MEDS: amLODIPine 2.5 MG Tab PO SCH (08:08)
[2021-12-27] MEDS: Cholecalciferol (Vitamin D3) 25 MCG Tab PO SCH (08:09)
[2021-12-27] MEDS: Enoxaparin 40 MG/0.4 ML Syringe SUBCUT SCH (19:25)
[2021-12-27] MEDS: Simvastatin 10 MG Tab PO SCH (19:25)
[2021-12-27] MEDS: REMDESIVIR 100 MG in Sodium Chloride 0.9% 100 ML IV SCH (19:26)
[2021-12-28] MEDS: Pantoprazole 40 MG Tab.CR PO SCH (06:21)
[2021-12-28] MEDS: Terazosin 1 MG Cap PO SCH (08:05)
[2021-12-28] MEDS: Citalopram 10 MG Tab PO SCH (08:05)
[2021-12-28] MEDS: Tamsulosin 0.4 MG Cap.ER PO SCH (08:05)
[2021-12-28] MEDS: Cholecalciferol (Vitamin D3) 25 MCG Tab PO SCH (08:06)
[2021-12-28] MEDS: Lisinopril 10 MG Tab PO SCH (08:06)
[2021-12-28] MEDS: amLODIPine 2.5 MG Tab PO SCH (08:06)
[2021-12-28 12:07] VITALS: BP 131/58; PULSE 65
[2021-12-28] MEDS ORDERED: REMDESIVIR 100 MG in Sodium Chloride 0.9% 100 ML IV SCH (14:00)
== END 2021-12-28 18:00 | disposition home or self-care (01) | DRG 179 ==
LOC: CC.ED 20:38 → CC.MS 21:35 → UNDOADMIN 21:58
PROVIDERS: ADMIT Nurse Practitioner Family; ATTEND Nurse Practitioner Family
PROC: XW033E5 Introduction of Remdesivir Anti-infective into Peripheral Vein, Percutaneous Approach, New Technology Group 5 (ICD-10-PCS; principal; 2021-12-26)
DX: U07.1 COVID-19 (principal); E87.6 Hypokalemia; E83.42 Hypomagnesemia; E86.0 Dehydration; R53.1 Weakness; K59.09 Other constipation; J44.9 Chronic obstructive pulmonary disease, unspecified; I10 Essential (primary) hypertension; Z79.51 Long term (current) use of inhaled steroids; Z79.899 Other long term (current) drug therapy; Z88.1 Allergy status to other antibiotic agents; Z90.49 Acquired absence of other specified parts of digestive tract
CPT/HCPCS: 36415; 71045; 80048; 80053; 81001; 82248; 83735; 84484; 85025; 93005; 96360; 97161-GP; 99223; 99232; 99233; 99238; 99285-25; A9270-GY; J1650; J7030; J7040; J7050; U0002

== ENCOUNTER 2023-01-15 20:51 | Inpatient (IN) | payer MEDICARE, BC ==
[2023-01-15] MEDS ORDERED: Sodium Chloride 0.9% 10 ML Syringe FLUSH PRN (21:01)
[2023-01-15 21:16] LABS: BASOPHILS ABSOLUTE AUTO 0.01 10^3/uL (0.00-0.50); BASOPHILS PERCENT AUTO 0.1 % (0-1); EOSINOPHILS ABSOLUTE AUTO 0.03 10^3/uL (0.00-1.50); EOSINOPHILS PERCENT AUTO 0.3 % (0-6); HEMATOCRIT 38.9 % (42.0-52.0); HEMOGLOBIN 13.2 g/dL (14.0-18.0); IMMATURE GRAN ABSOLUTE AUTO 0.01 10^3/uL (0.00-0.49); IMMATURE GRAN PERCENT AUTO 0.1 % (0.0-4.9); LYMPHOCYTES PERCENT AUTO 11.9 % (24-44); MEAN CORPUSCULAR HGB CONC 33.9 g/dL (32.0-36.0); MEAN CORPUSCULAR VOLUME 88.4 fL (83.0-97.0); MONOCYTES ABSOLUTE AUTO 1.22 10^3/uL (0.00-1.50); MONOCYTES PERCENT AUTO 13.2 % (0-10); NEUTROPHILS PERCENT AUTO 74.4 % (41-71); PLATELET COUNT,PLT 201 10^3/uL (150-400); WHITE BLOOD CELL COUNT,WBC 9.3 10^3/uL (4.0-11.0)
[2023-01-15 21:36] LABS: ALBUMIN 2.6 g/dL (3.4-5.0); BILIRUBIN TOTAL 1.1 mg/dL (0.0-1.0); CREATININE 1.6 mg/dL (0.7-1.3); EST CRCL DRUG DOSING (CG) 29.84 mL/min; MAGNESIUM 1.4 mg/dL (1.8-2.4); POTASSIUM,K 3.1 mEq/L (3.5-5.0); PROTEIN TOTAL,TP 7.3 g/dL (6.4-8.2)
[2023-01-15 21:42] LABS: D-DIMER QUANTITATIVE 3.57 (0.00-0.50); INR 1.03 (0.92-1.18); PROTHROMBIN TIME 10.6 SEC (9.3-11.3); PTT,PARTIAL THROMBOPLSTIN TIME 33.6 SEC (20.0-30.0)
[2023-01-15 21:44] LABS: APPEARANCE,URINE CLEAR (CLEAR); BILIRUBIN,URINE NEGATIVE (NEGATIVE); COLOR,URINE YELLOW (YELLOW); GLUCOSE,URINE NEGATIVE (NEGATIVE); KETONES,URINE NEGATIVE (NEGATIVE); LEUKOCYTE ESTERASE,URINE TRACE (NEGATIVE); NITRITE,URINE NEGATIVE (NEGATIVE); OCCULT BLOOD,URINE SMALL (NEGATIVE); PH,URINE 6.5 (4.5-8.0); PROTEIN,URINE 100 mg/dL (NEGATIVE)
[2023-01-15] MEDS ORDERED: Acetaminophen 325 MG Tab PO ONE (21:48)
[2023-01-15 21:52] LABS: BACTERIA,URINE FEW /HPF (NOT SEEN); SQUAMOUS EPITHELIAL CELLS,UR FEW /HPF (NOT SEEN)
[2023-01-15] MEDS ORDERED: Sodium Chloride 0.9% 1,000 ML IV SCH (22:00)
[2023-01-15] MEDS ORDERED: Iopamidol 755 Mg/ML 100 ML Bottle IVPUSH ONE (22:28)
[2023-01-15] MEDS ORDERED: Acetaminophen 325 MG Tab PO PRN (23:03)
[2023-01-15] MEDS ORDERED: Ondansetron 4 MG/2 ML SDV IV PRN (23:03)
[2023-01-15] MEDS ORDERED: Docusate Sodium 100 MG Cap PO PRN (23:03)
[2023-01-15] MEDS ORDERED: Polyethylene Glycol 3350 Powder 17 GM Packet PO PRN (23:03)
[2023-01-15] MEDS ORDERED: Formoterol/Mometasone 100-5 MCG 8.8 GM Inhaler IH PRN (23:10)
[2023-01-15] MEDS ORDERED: Meclizine 12.5 MG Tab PO PRN (23:10)
[2023-01-15] MEDS ORDERED: cefTRIAXone 1 GM Vial IVPUSH SCH (23:15)
[2023-01-16] MEDS: Potassium Chloride 10 MEQ Tab.ER PO SCH ×2 (00:03→08:51)
[2023-01-16 07:33] LABS: BASOPHILS ABSOLUTE AUTO 0.03 10^3/uL (0.00-0.50); BASOPHILS PERCENT AUTO 0.3 % (0-1); EOSINOPHILS ABSOLUTE AUTO 0.13 10^3/uL (0.00-1.50); EOSINOPHILS PERCENT AUTO 1.3 % (0-6); HEMATOCRIT 37.6 % (42.0-52.0); HEMOGLOBIN 12.5 g/dL (14.0-18.0); IMMATURE GRAN ABSOLUTE AUTO 0.02 10^3/uL (0.00-0.49); IMMATURE GRAN PERCENT AUTO 0.2 % (0.0-4.9); LYMPHOCYTES ABSOLUTE AUTO 1.18 10^3/uL (0.60-5.00); MEAN CORPUSCULAR HEMOGLOBIN 29.8 pg (27.0-32.0); MEAN CORPUSCULAR HGB CONC 33.2 g/dL (32.0-36.0); MEAN CORPUSCULAR VOLUME 89.5 fL (83.0-97.0); MONOCYTES PERCENT AUTO 13.3 % (0-10); NEUTROPHILS ABSOLUTE AUTO 7.15 x10^3/uL (1.80-8.00); NEUTROPHILS PERCENT AUTO 72.9 % (41-71); PLATELET COUNT,PLT 199 10^3/uL (150-400); WHITE BLOOD CELL COUNT,WBC 9.8 10^3/uL (4.0-11.0)
[2023-01-16 07:48] LABS: ALBUMIN 2.3 g/dL (3.4-5.0); BILIRUBIN TOTAL 0.8 mg/dL (0.0-1.0); CALCIUM 8.9 mg/dL (8.4-10.1); CREATININE 1.4 mg/dL (0.7-1.3); EST CRCL DRUG DOSING (CG) 34.1 mL/min; PROTEIN TOTAL,TP 6.6 g/dL (6.4-8.2)
[2023-01-16] MEDS: Cholecalciferol (Vitamin D3) 25 MCG Tab PO SCH (08:48)
[2023-01-16] MEDS: Tamsulosin 0.4 MG Cap.ER PO SCH (08:48)
[2023-01-16] MEDS: Pantoprazole 40 MG Tab.CR PO SCH (08:48)
[2023-01-16] MEDS: amLODIPine 10 MG Tab PO SCH (08:49)
[2023-01-16] MEDS: Escitalopram 10 MG Tab PO SCH (08:50)
[2023-01-16] MEDS: Terazosin 1 MG Cap PO SCH (08:50)
[2023-01-16] MEDS: Lisinopril 10 MG Tab PO SCH (08:51)
[2023-01-16] MEDS: Simvastatin 20 MG Tab PO SCH (08:51)
[2023-01-16] MEDS: cefTRIAXone 1 GM Vial IVPUSH SCH (19:37)
[2023-01-16] MEDS ORDERED: Enoxaparin 40 MG/0.4 ML Syringe SUBCUT SCH (20:00)
[2023-01-16] MEDS ORDERED: Enoxaparin 30 MG/0.3 ML Syringe SUBCUT SCH (21:00)
[2023-01-17] MEDS: Potassium Chloride 10 MEQ Tab.ER PO SCH (07:34)
[2023-01-17] MEDS: Escitalopram 10 MG Tab PO SCH (07:34)
[2023-01-17] MEDS: Tamsulosin 0.4 MG Cap.ER PO SCH (07:35)
[2023-01-17] MEDS: amLODIPine 10 MG Tab PO SCH (07:35)
[2023-01-17] MEDS: Simvastatin 20 MG Tab PO SCH (07:36)
[2023-01-17] MEDS: Terazosin 1 MG Cap PO SCH (07:36)
[2023-01-17] MEDS: Cholecalciferol (Vitamin D3) 25 MCG Tab PO SCH (07:37)
[2023-01-17] MEDS: Pantoprazole 40 MG Tab.CR PO SCH (07:37)
[2023-01-17] MEDS: Lisinopril 10 MG Tab PO SCH (07:37)
[2023-01-17 07:46] VITALS: PULSE 56
[2023-01-17 07:50] LABS: BASOPHILS ABSOLUTE AUTO 0.02 10^3/uL (0.00-0.50); BASOPHILS PERCENT AUTO 0.3 % (0-1); EOSINOPHILS ABSOLUTE AUTO 0.28 10^3/uL (0.00-1.50); EOSINOPHILS PERCENT AUTO 3.9 % (0-6); HEMATOCRIT 37.1 % (42.0-52.0); HEMOGLOBIN 12.3 g/dL (14.0-18.0); IMMATURE GRAN ABSOLUTE AUTO 0.02 10^3/uL (0.00-0.49); IMMATURE GRAN PERCENT AUTO 0.3 % (0.0-4.9); LYMPHOCYTES ABSOLUTE AUTO 1.55 10^3/uL (0.60-5.00); LYMPHOCYTES PERCENT AUTO 21.6 % (24-44); MEAN CORPUSCULAR HEMOGLOBIN 29.9 pg (27.0-32.0); MEAN CORPUSCULAR HGB CONC 33.2 g/dL (32.0-36.0); MONOCYTES ABSOLUTE AUTO 0.67 10^3/uL (0.00-1.50); MONOCYTES PERCENT AUTO 9.3 % (0-10); NEUTROPHILS ABSOLUTE AUTO 4.63 x10^3/uL (1.80-8.00); NEUTROPHILS PERCENT AUTO 64.6 % (41-71); PLATELET COUNT,PLT 215 10^3/uL (150-400); RED BLOOD CELL COUNT 4.12 x10^6/uL (4.50-6.00); WHITE BLOOD CELL COUNT,WBC 7.2 10^3/uL (4.0-11.0)
[2023-01-17 08:01] LABS: ALBUMIN 2.2 g/dL (3.4-5.0); BILIRUBIN TOTAL 0.3 mg/dL (0.0-1.0); CALCIUM 9.2 mg/dL (8.4-10.1); CREATININE 1.6 mg/dL (0.7-1.3); EST CRCL DRUG DOSING (CG) 29.84 mL/min; POTASSIUM,K 4.4 mEq/L (3.5-5.0); PROTEIN TOTAL,TP 6.7 g/dL (6.4-8.2)
[2023-01-17 11:51] VITALS: BP 114/46
[2023-01-17] MEDS ORDERED: Ciprofloxacin 500 MG Tab PO STA (14:35)
[2023-01-17] MEDS: cefTRIAXone 1 GM Vial IVPUSH SCH (15:23)
== END 2023-01-17 16:13 | disposition home or self-care (01) | DRG 728 ==
LOC: CC.ED 20:51 → UNDOADMIN 22:20 → CC.MS 22:20 → UNDODISIN 01-17 16:13
PROVIDERS: ADMIT Nurse Practitioner Family; ATTEND Nurse Practitioner Family
DX: N41.0 Acute prostatitis (principal); J84.9 Interstitial pulmonary disease, unspecified; N39.0 Urinary tract infection, site not specified; E87.6 Hypokalemia; E83.42 Hypomagnesemia; R06.02 Shortness of breath; K92.1 Melena; Z20.822 Contact with and (suspected) exposure to COVID-19; Z90.49 Acquired absence of other specified parts of digestive tract; Z98.890 Other specified postprocedural states; Z88.1 Allergy status to other antibiotic agents; J44.9 Chronic obstructive pulmonary disease, unspecified; I10 Essential (primary) hypertension; R29.6 Repeated falls; Z79.899 Other long term (current) drug therapy
CPT/HCPCS: 36415; 71046; 71275; 80053; 81001; 82150; 83690; 83735; 83880; 84484; 85025; 85379; 85610; 85730; 87040; 87086; 87804; 93005; 93010; 96360; 99223; 99233; 99239; 99285-25; A9270-GY; J0696; J1650; J7030; Q9967; U0002

== ENCOUNTER 2023-03-06 10:32 | Emergency (ER) | payer MEDICARE, BC ==
[2023-03-06 10:52] LABS: BASOPHILS ABSOLUTE AUTO 0.05 10^3/uL (0.00-0.50); BASOPHILS PERCENT AUTO 0.4 % (0-1); EOSINOPHILS ABSOLUTE AUTO 0.21 10^3/uL (0.00-1.50); EOSINOPHILS PERCENT AUTO 1.7 % (0-6); HEMATOCRIT 40.1 % (42.0-52.0); HEMOGLOBIN 13.5 g/dL (14.0-18.0); IMMATURE GRAN ABSOLUTE AUTO 0.04 10^3/uL (0.00-0.49); IMMATURE GRAN PERCENT AUTO 0.3 % (0.0-4.9); LYMPHOCYTES ABSOLUTE AUTO 1.42 10^3/uL (0.60-5.00); LYMPHOCYTES PERCENT AUTO 11.2 % (24-44); MEAN CORPUSCULAR HGB CONC 33.7 g/dL (32.0-36.0); MEAN CORPUSCULAR VOLUME 89.1 fL (83.0-97.0); MONOCYTES ABSOLUTE AUTO 1.16 10^3/uL (0.00-1.50); MONOCYTES PERCENT AUTO 9.1 % (0-10); NEUTROPHILS ABSOLUTE AUTO 9.83 x10^3/uL (1.80-8.00); NEUTROPHILS PERCENT AUTO 77.3 % (41-71); PLATELET COUNT,PLT 223 10^3/uL (150-400); WHITE BLOOD CELL COUNT,WBC 12.7 10^3/uL (4.0-11.0)
[2023-03-06 11:05] LABS: BILIRUBIN TOTAL 0.6 mg/dL (0.0-1.0); CALCIUM 8.9 mg/dL (8.4-10.1); CREATININE 1.5 mg/dL (0.7-1.3); EST CRCL DRUG DOSING (CG) 31.83 mL/min; MAGNESIUM 1.6 mg/dL (1.8-2.4); POTASSIUM,K 4.1 mEq/L (3.5-5.0); PROTEIN TOTAL,TP 7.4 g/dL (6.4-8.2)
[2023-03-06 11:35] VITALS: BP 170/59; PULSE 60
[2023-03-06] MEDS ORDERED: Lidocaine 5% 700 MG Patch TRDERM ONE (12:25)
== END 2023-03-06 13:05 | disposition home or self-care (01) ==
LOC: CC.ED 10:32
DX: S20.212A Contusion of left front wall of thorax, initial encounter (principal); M79.641 Pain in right hand; M54.2 Cervicalgia; J44.9 Chronic obstructive pulmonary disease, unspecified; I10 Essential (primary) hypertension; Z88.1 Allergy status to other antibiotic agents; Z79.899 Other long term (current) drug therapy; W01.198A Fall on same level from slipping, tripping and stumbling with subsequent striking against other object, initial encounter
CPT/HCPCS: 36415; 70450; 71101-LT; 72125; 73130-RT; 80053; 83735; 85025; 99284; A9270-GY

== ENCOUNTER 2024-04-25 20:26 | Inpatient (IN) | payer MEDICARE, BC ==
[2024-04-25] MEDS: Sodium Chloride 0.9% 1,000 ML IV ONE (20:24)
[2024-04-25 20:52] LABS: BASOPHILS ABSOLUTE AUTO 0.06 10^3/uL (0.00-0.50); BASOPHILS PERCENT AUTO 0.8 % (0-1); EOSINOPHILS ABSOLUTE AUTO 0.12 10^3/uL (0.00-1.50); EOSINOPHILS PERCENT AUTO 1.7 % (0-6); HEMATOCRIT 37.5 % (42.0-52.0); HEMOGLOBIN 11.9 g/dL (14.0-18.0); IMMATURE GRAN ABSOLUTE AUTO 0.02 10^3/uL (0.00-0.49); IMMATURE GRAN PERCENT AUTO 0.3 % (0.0-4.9); LYMPHOCYTES ABSOLUTE AUTO 1.55 10^3/uL (0.60-5.00); LYMPHOCYTES PERCENT AUTO 21.8 % (24-44); MEAN CORPUSCULAR HEMOGLOBIN 28.1 pg (27.0-32.0); MEAN CORPUSCULAR HGB CONC 31.7 g/dL (32.0-36.0); MEAN CORPUSCULAR VOLUME 88.7 fL (83.0-97.0); MONOCYTES ABSOLUTE AUTO 0.54 10^3/uL (0.00-1.50); MONOCYTES PERCENT AUTO 7.6 % (0-10); NEUTROPHILS ABSOLUTE AUTO 4.83 x10^3/uL (1.80-8.00); NEUTROPHILS PERCENT AUTO 67.8 % (41-71); PLATELET COUNT,PLT 239 10^3/uL (150-400); RED BLOOD CELL COUNT 4.23 x10^6/uL (4.50-6.00); WHITE BLOOD CELL COUNT,WBC 7.1 10^3/uL (4.0-11.0)
[2024-04-25 21:13] LABS: ALBUMIN 3.2 g/dL (3.4-5.0); BILIRUBIN TOTAL 0.3 mg/dL (0.0-1.0); CALCIUM 9.5 mg/dL (8.4-10.1); EST CRCL DRUG DOSING (CG) 16.72 mL/min; MAGNESIUM 1.6 mg/dL (1.8-2.4); POTASSIUM,K 3.8 mEq/L (3.5-5.0); PROTEIN TOTAL,TP 7.3 g/dL (6.4-8.2)
[2024-04-25 21:14] LABS: CREATININE 2.8 mg/dL (0.7-1.3)
[2024-04-25] MEDS ORDERED: Ondansetron 4 MG/2 ML SDV IV PRN (22:27)
[2024-04-25] MEDS ORDERED: Polyethylene Glycol 3350 Powder 17 GM Packet PO PRN (22:27)
[2024-04-25] MEDS ORDERED: Ondansetron 4 MG Tab.DIS PO PRN (22:27)
[2024-04-25] MEDS ORDERED: Docusate Sodium 100 MG Cap PO PRN (22:27)
[2024-04-25] MEDS ORDERED: Meclizine 12.5 MG Tab PO PRN (22:27)
[2024-04-25] MEDS: Sodium Chloride 0.9% 1,000 ML IV SCH (23:03)
[2024-04-25] MEDS: Folic Acid 1 MG, Multivitamins 1 TAB, Thiamine 100 MG, Magnesium Oxide 400 MG PO SCH (23:08)
[2024-04-25 23:28] LABS: APPEARANCE,URINE CLEAR (CLEAR); BILIRUBIN,URINE NEGATIVE (NEGATIVE); COLOR,URINE YELLOW (YELLOW); GLUCOSE,URINE NEGATIVE (NEGATIVE); KETONES,URINE NEGATIVE (NEGATIVE); LEUKOCYTE ESTERASE,URINE TRACE (NEGATIVE); NITRITE,URINE NEGATIVE (NEGATIVE); OCCULT BLOOD,URINE NEGATIVE (NEGATIVE); PROTEIN,URINE NEGATIVE (NEGATIVE); UROBILINOGEN,URINE 0.2 EU/dL (0.2-1.0)
[2024-04-25 23:37] LABS: BACTERIA,URINE OCCASIONAL /HPF (NOT SEEN); RBC,URINE 0-5 /HPF (0-5); SQUAMOUS EPITHELIAL CELLS,UR FEW /HPF (NOT SEEN)
[2024-04-26] MEDS: Acetaminophen 325 MG Tab PO PRN (03:46)
[2024-04-26 07:50] LABS: CALCIUM 8.9 mg/dL (8.4-10.1); CREATININE 2.3 mg/dL (0.7-1.3); EST CRCL DRUG DOSING (CG) 20.36 mL/min; MAGNESIUM 1.3 mg/dL (1.8-2.4); POTASSIUM,K 3.5 mEq/L (3.5-5.0)
[2024-04-26] MEDS: Escitalopram 10 MG Tab PO SCH (07:51)
[2024-04-26] MEDS: Aspirin 81 MG Tab.EC PO SCH (07:51)
[2024-04-26] MEDS: Tamsulosin 0.4 MG Cap.ER PO SCH (07:51)
[2024-04-26] MEDS: Magnesium Oxide 400 MG Tab PO SCH (07:51)
[2024-04-26] MEDS: Pantoprazole 40 MG Tab.CR PO SCH (07:52)
[2024-04-26] MEDS: Cholecalciferol (Vitamin D3) 25 MCG Tab PO SCH (07:52)
[2024-04-26] MEDS: Simvastatin 10 MG Tab PO SCH (07:52)
[2024-04-26 08:04] LABS: BASOPHILS ABSOLUTE AUTO 0.04 10^3/uL (0.00-0.50); BASOPHILS PERCENT AUTO 0.4 % (0-1); EOSINOPHILS ABSOLUTE AUTO 0.14 10^3/uL (0.00-1.50); EOSINOPHILS PERCENT AUTO 1.4 % (0-6); HEMATOCRIT 35.1 % (42.0-52.0); HEMOGLOBIN 11.4 g/dL (14.0-18.0); IMMATURE GRAN ABSOLUTE AUTO 0.02 10^3/uL (0.00-0.49); IMMATURE GRAN PERCENT AUTO 0.2 % (0.0-4.9); LYMPHOCYTES PERCENT AUTO 17.5 % (24-44); MEAN CORPUSCULAR HEMOGLOBIN 27.9 pg (27.0-32.0); MEAN CORPUSCULAR HGB CONC 32.5 g/dL (32.0-36.0); MEAN CORPUSCULAR VOLUME 85.8 fL (83.0-97.0); MONOCYTES ABSOLUTE AUTO 0.85 10^3/uL (0.00-1.50); MONOCYTES PERCENT AUTO 8.3 % (0-10); NEUTROPHILS ABSOLUTE AUTO 7.45 x10^3/uL (1.80-8.00); NEUTROPHILS PERCENT AUTO 72.2 % (41-71); PLATELET COUNT,PLT 241 10^3/uL (150-400); RED BLOOD CELL COUNT 4.09 x10^6/uL (4.50-6.00); WHITE BLOOD CELL COUNT,WBC 10.3 10^3/uL (4.0-11.0)
[2024-04-26] MEDS: Magnesium Sulfate/Water Premix 4 GM in Premix Bag 1 BAG IV ONE (11:29)
[2024-04-26] MEDS: Heparin Sodium 5,000 Units/ML Vial SUBCUT SCH (12:06)
[2024-04-27 07:26] LABS: CALCIUM 8.7 mg/dL (8.4-10.1); CREATININE 1.8 mg/dL (0.7-1.3); EST CRCL DRUG DOSING (CG) 26.01 mL/min; MAGNESIUM 1.8 mg/dL (1.8-2.4); POTASSIUM,K 4.8 mEq/L (3.5-5.0)
[2024-04-27 07:32] LABS: BASOPHILS ABSOLUTE AUTO 0.05 10^3/uL (0.00-0.50); BASOPHILS PERCENT AUTO 0.7 % (0-1); EOSINOPHILS ABSOLUTE AUTO 0.42 10^3/uL (0.00-1.50); EOSINOPHILS PERCENT AUTO 5.9 % (0-6); HEMATOCRIT 33.5 % (42.0-52.0); HEMOGLOBIN 10.7 g/dL (14.0-18.0); IMMATURE GRAN ABSOLUTE AUTO 0.01 10^3/uL (0.00-0.49); IMMATURE GRAN PERCENT AUTO 0.1 % (0.0-4.9); LYMPHOCYTES ABSOLUTE AUTO 1.82 10^3/uL (0.60-5.00); LYMPHOCYTES PERCENT AUTO 25.7 % (24-44); MEAN CORPUSCULAR HEMOGLOBIN 28.1 pg (27.0-32.0); MEAN CORPUSCULAR HGB CONC 31.9 g/dL (32.0-36.0); MEAN CORPUSCULAR VOLUME 87.9 fL (83.0-97.0); MONOCYTES ABSOLUTE AUTO 0.51 10^3/uL (0.00-1.50); MONOCYTES PERCENT AUTO 7.2 % (0-10); NEUTROPHILS ABSOLUTE AUTO 4.26 x10^3/uL (1.80-8.00); NEUTROPHILS PERCENT AUTO 60.4 % (41-71); PLATELET COUNT,PLT 210 10^3/uL (150-400); RED BLOOD CELL COUNT 3.81 x10^6/uL (4.50-6.00); WHITE BLOOD CELL COUNT,WBC 7.1 10^3/uL (4.0-11.0)
[2024-04-28 09:43] LABS: ALBUMIN 3.1 g/dL (3.4-5.0); BILIRUBIN TOTAL 0.4 mg/dL (0.0-1.0); CALCIUM 9.5 mg/dL (8.4-10.1); CREATININE 1.7 mg/dL (0.7-1.3); EST CRCL DRUG DOSING (CG) 27.54 mL/min; POTASSIUM,K 4.5 mEq/L (3.5-5.0); PROTEIN TOTAL,TP 7.3 g/dL (6.4-8.2)
[2024-04-28 12:37] VITALS: BP 138/56; PULSE 87
== END 2024-04-28 13:08 | disposition home or self-care (01) | DRG 684 ==
LOC: CC.ED 20:26 → SUPCPDRO 20:26 → CC.MS 21:38 → UNDOADMIN 21:45 → CC.MS 21:45
PROVIDERS: ADMIT Nurse Practitioner; ATTEND Nurse Practitioner
DX: N17.9 Acute kidney failure, unspecified (principal); N18.9 Chronic kidney disease, unspecified; I95.9 Hypotension, unspecified; N40.0 Benign prostatic hyperplasia without lower urinary tract symptoms; F41.9 Anxiety disorder, unspecified; F32.A Depression, unspecified; K59.09 Other constipation; I12.9 Hypertensive chronic kidney disease with stage 1 through stage 4 chronic kidney disease, or unspecified chronic kidney disease; J44.9 Chronic obstructive pulmonary disease, unspecified; H54.7 Unspecified visual loss; E86.0 Dehydration; Z88.1 Allergy status to other antibiotic agents; Z91.030 Bee allergy status; Z79.899 Other long term (current) drug therapy; Z86.0100 Personal history of colon polyps, unspecified; Z90.49 Acquired absence of other specified parts of digestive tract; Z90.89 Acquired absence of other organs; Z79.82 Long term (current) use of aspirin
CPT/HCPCS: 36415; 70450; 71045; 72125; 74176; 80048; 80053; 80307; 81001; 83735; 84484; 85025; 97110-GP; 97161-GP; 99285; A9270-GY; J1644; J3475; J7030